=== PATIENT | male | born 1975 | race Caucasian/White ===

== ENCOUNTER 2019-02-10 07:08 | Emergency (ER) | payer BC ==
--- OUTSIDE RECORDS SUMMARY | 2019-02-10 07:09 | XMS REPORT ---
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 Problem Hyperglycemia R73.9 Active Problem Hypertriglyceridemia E78.1 Active Problem Irregular heart beats I49.9 Active Problem Male erectile disorder N52.9 Active Assessment 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 Assessment Acute pain of left knee M25.562 Active Assessment Benign hypertension I10 Active Assessment Tobacco abuse counseling Z71.6 Active Medications Medication Code System Code Instructions Start End Date Status Dosage Date Niaspan [facility] [id number] 500 MG Orally March 30, Sep 26, Active 1 tablet at Once a day 2017 2017 bedtime Lisinopril [facility] [id number] 20 MG Oral Once Active 1 tablet a day Cialis [facility] [id number] 20 MG Oral Active (Prior Auth: Rx Ref#:[id number]) Results No Known Results Summary Purpose eClinicalWorks Submission
[2019-02-10] MEDS ORDERED: NA CHLORIDE 0.9% 1,000 ML ONE (07:40)
[2019-02-10] MEDS ORDERED: ONDANSETRON 4 MG/2 ML VIAL ONE ×2 (07:40→11:10)
[2019-02-10 08:06] LABS: Absolute Lymphocytes (CBC) 1.8 K/uL (0.7-4.9); Absolute Monocytes 0.7 K/uL (0.1-1.3); Basophils % 0.1 % (0-1.3); Eosinophils % 0.5 % (0-4.4); Hematocrit 44.5 % (39.6-49.0); Lymphocytes % 14.3 % (15.3-44.8); MPV 8.9 fL (7.6-11.3); Monocytes % 5.5 % (3.3-12.3)
[2019-02-10 08:10] LABS: ALT/SGPT 46 U/L (12-78); AST/SGOT 30 U/L (15-37); Albumin 3.8 g/dL (3.4-5.0); Alkaline Phosphatase 96 U/L (45-117); BUN Blood Urea Nitrogen 11 mg/dL (7-18); Bicarbonate 28 mmol/L (21-32); Bilirubin Direct 0.1 mg/dL (0-0.2); Bilirubin Total 0.5 mg/dL (0.2-1.0); Glucose Level 112 mg/dL (74-106); Lipase 111 U/L (73-393); Potassium 4.6 mmol/L (3.5-5.1); Protein, Total 8.3 g/dL (6.4-8.2); Sodium Level 136 mmol/L (136-145)
--- NOTE | 2019-02-10 09:33 | RAD REPORT ---
EXAM DESCRIPTION: CT - Abdomen Pelvis W Contrast - 02/10/2019 9:10 am CLINICAL HISTORY: Lower abdominal pain, nausea, decreased bowel movement COMPARISON: None. TECHNIQUE: Biphasic, helical CT imaging of the abdomen and pelvis was performed following 100 ml non -ionic IV contrast. Oral contrast was given. All CT scans are performed using dose optimization technique as appropriate and may include automated exposure control or mA/KV adjustment according to patient size. FINDINGS: No suspicious findings in the lung bases. Liver shows mild to moderate diffuse fatty infiltration pattern. No focal liver lesion or capsular no dularity. Spleen and pancreas show no suspicious findings. Gallbladder and biliary tree are also with out suspicious finding. Symmetric renal function is seen with no hydronephrosis or suspicious renal mass. No pyelonephritis o r acute parenchymal process. No bladder abnormalities. No adrenal abnormalities. No gastric dilatation or wall thickening. No small bowel abnormality identified. From cecum through s plenic flexure no acute colon process identifiable. Proximal sigmoid colon shows an approximately 3-4 centimeter length of circumferential wall thickening and significant luminal narrowing. There is mil d dilatation of the descending colon immediately proximal to the sigmoid finding. Distal sigmoid and rectum show no acute findings. There is mild stranding in the fat adjacent to the involved sigmoid co lilliana. There are multiple small sub centimeter lymph nodes present. No free air, free fluid or pneumatosis. No bulky lymphadenopathy. Patient does have a few small sub centimeter periaortic lymph nodes. Patient has a fat only umbilical hernia 4.5 cm AP x 3.5 cm TR. Nec k is 3 cm. No bowel involvement. No congestion or edema of the herniated fat. No suspicious bony findings. IMPRESSION: Approximately 3- 4 centimeter long segment of proximal sigmoid colon showing wall thicke leslie and luminal narrowing. Mild dilatation of the descending colon proximal to the involved sigmoid colon. Adjacent stranding is present with multiple small sub centimeter sized lymph nodes. Sigmoid colon malignancy is favored over colitis/diverticulitis. A few small sub centimeter periaortic lymph nodes are present. Fatty infiltration of the liver. No focal liver lesion identified.
[2019-02-10] MEDS ORDERED: METRONIDAZOLE 500mg IVPB 500 MG/100 ML BAG IV ONE (11:31)
[2019-02-10] MEDS ORDERED: DICYCLOMINE HCL 10 MG CAP ONE (11:31)
[2019-02-10] MEDS ORDERED: CIPROFLOXACIN HCL 500 MG TAB ONE (11:31)
[2019-02-10 11:46] LABS: Urine Blood TRACE (NEG); Urine Glucose NEGATIVE (NEG); Urine Protein NEGATIVE (NEG); Urine pH 5.5 (5.0-7.0)
--- NOTE | 2019-02-10 12:33 | ER ---
Nurse's Notes [facility] Name: Frantz Martinez Jr Age: 43 yrs Sex: Male : 1975 Arrival Date: 02/10/2019 Time: 07:10 Bed 13 Private MD: Joshua Seymour Diagnosis: Malignant neoplasm of sigmoid colon Presentation: 02/10 07:19 Presenting complaint: Patient states: lower abd pain that started last night, reports em nausea, denies fever or diarrhea, has not had a BM in days. Transition of care: patient was not received from another setting of care. Onset of symptoms was February 09, 2019. Risk Assessment: Do you want to hurt yourself or someone else? Patient reports no desire to harm self or others. Initial Sepsis Screen: Does the patient meet any 2 criteria? No. Patient's initial sepsis screen is negative. Does the patient have a suspected source of infection? No. Patient's initial sepsis screen is negative. Care prior to arrival: None. 07:19 Method Of Arrival: Ambulatory em 07:33 Acuity: CONNIE 3 iw Triage Assessment: 07:26 General: Appears in no apparent distress. uncomfortable, Behavior is calm, cooperative. em Pain: Complains of pain in right lower quadrant and left lower quadrant. GI: Abdomen is obese, Bowel sounds present X 4 quads. Reports constipation, nausea, vomiting. Historical: - Allergies: 07:26 No Known Allergies; em - Home Meds: 07:26 lisinopril 20 mg Oral tab [Active]; em - PMHx: 07:26 Hypertension; em - PSHx: 07:26 None; em - Immunization history:: Adult Immunizations up to date. - Social history:: Smoking status: Patient/guardian denies using tobacco. - Ebola Screening: : Patient negative for fever greater than or equal to 101.5 degrees Fahrenheit, and additional compatible Ebola Virus Disease symptoms Patient denies exposure to infectious person Patient denies travel to an Ebola-affected area in the 21 days before illness onset No symptoms or risks identified at this time. Screenin:30 Abuse screen: Denies threats or abuse. Nutritional screening: No deficits noted. em Tuberculosis screening: No symptoms or risk factors identified. Fall Risk None identified. Assessment: 07:30 General: Appears in no apparent distress. uncomfortable, Behavior is calm, cooperative, em Denies fever. Pain: Complains of pain in left lower quadrant and right lower quadrant Pain currently is 0 out of 10 on a pain scale. at worst was 7 out of 10 on a pain scale. Quality of pain is described as crampy, Pain began 1 day ago. Neuro: Level of Consciousness is awake, alert, obeys commands, Oriented to person, place, time, situation. Cardiovascular: Denies chest pain, Capillary refill < 3 seconds Patient's skin is warm and dry. Respiratory: Airway is patent Respiratory effort is even, unlabored, Respiratory pattern is regular, symmetrical. GI: Abdomen is obese, Bowel sounds present X 4 quads. Abd is soft X 4 quads Abdomen is tender to palpation in right lower quadrant and left lower quadrant Reports constipation, nausea, vomiting, Patient currently denies diarrhea. : Denies burning with urination. EENT: No signs and/or symptoms were reported regarding the EENT system. Derm: Skin is intact, is healthy with good turgor, Skin is pink, warm \T\ dry. Musculoskeletal: Range of motion: intact in all extremities. 07:35 Reassessment: finished drinking PO contrast, CT notified. em 08:30 Reassessment: Patient appears in no apparent distress at this time. Patient and/or em family updated on plan of care and expected duration. Pain level reassessed. Patient is alert, oriented x 3, equal unlabored respirations, skin warm/dry/pink. nausea has subsided, still reports intermittent pain, currently does not want anything for pain, pending CT. 10:00 Reassessment: Patient appears in no apparent distress at this time. Patient and/or em family updated on plan of care and expected duration. Pain level reassessed. Patient is alert, oriented x 3, equal unlabored respirations, skin warm/dry/pink. 11:10 Reassessment: Patient appears in no apparent distress at this time. request something em for nausea, provider notified, new medication orders received. 11:58 Reassessment: Patient appears in no apparent distress at this time. Patient and/or em family updated on plan of care and expected duration. Pain level reassessed. Patient is alert, oriented x 3, equal unlabored respirations, skin warm/dry/pink. Patient states feeling better. Patient states symptoms have improved. 12:43 Reassessment: Patient appears in no apparent distress at this time. Patient and/or em family updated on plan of care and expected duration. Pain level reassessed. Patient is alert, oriented x 3, equal unlabored respirations, skin warm/dry/pink. nausea has improved Patient states feeling better. Patient states symptoms have improved. Vital Signs: 07:27 BP 144 / 90; Pulse 87; Resp 18; Temp 98.5(O); Pulse Ox 100% on R/A; Weight 124.74 kg; em Height 5 ft. 9 in. (175.26 cm); Pain 7/10; 08:30 BP 150 / 88; Pulse 85; Resp 18; Pulse Ox 96% on R/A; em 09:00 BP 150 / 88; Pulse 78; Resp 18; Pulse Ox 98% ; sv 10:30 BP 131 / 79; Pulse 80; Resp 18; Pulse Ox 97% ; sv 11:30 BP 141 / 93; Pulse 77; Resp 18; Pulse Ox 99% on R/A; Pain 3/10; em 12:45 BP 145 / 89; Pulse 79; Resp 18; Pulse Ox 99% on R/A; Pain 4/10; em 07:27 Body Mass Index 40.61 (124.74 kg, 175.26 cm) em ED Course: 07:10 Patient arrived in ED. rg4 07:10 Joshua Seymour MD is Private Physician. rg4 07:13 Brayan Cuba LVN is Primary Nurse. em 07:14 Cristian Castaneda NP is PHCP. pm1 07:27 Arm band placed on. em 07:28 Luan Rivera MD is Attending Physician. pm1 07:30 Patient has correct armband on for positive identification. Placed in gown. Bed in low em position. Call light in reach. Adult w/ patient. Pulse ox on. NIBP on. 07:30 Initial lab(s) drawn, by me, sent to lab. Inserted saline lock: 20 gauge in right em antecubital area, using aseptic technique. Blood collected. 07:33 Triage completed. iw 09:[address] via wheelchair. nj 09:10 CT completed. Patient tolerated procedure well. Patient moved back from CT. nj 09:10 CT Abd/Pelvis - W/Contrast: PO and Iv contrast In Process Unspecified. EDMS 12:30 Joshua Seymour MD is Referral Physician. pm1 12:30 El Mondragon MD is Referral Physician. pm1 12:46 No provider procedures requiring assistance completed. IV discontinued, intact, em bleeding controlled, No redness/swelling at site. Pressure dressing applied. Administered Medications: 07:35 Drug: NS 0.9% 1000 ml Route: IV; Rate: 1000 ml; Site: right antecubital; em 09:00 Follow up: IV Status: Completed infusion; IV Intake: 1000ml em 07:37 Drug: Zofran 4 mg Route: IVP; Site: right antecubital; iw 08:00 Follow up: Response: No adverse reaction; Nausea is decreased em 11:18 Drug: Zofran 4 mg Route: IVP; Site: right antecubital; em 12:46 Follow up: Response: No adverse reaction; Nausea is decreased em 11:28 Drug: Bentyl 20 mg Route: PO; em 12:46 Follow up: Response: No adverse reaction; Pain is decreased em 11:28 Drug: Flagyl 500 mg Volume: 100 ml; Route: IVPB; Rate: 200 ml/hr; Infused Over: 30 em mins; Site: right antecubital; 12:00 Follow up: Response: No adverse reaction; IV Status: Completed infusion; IV Intake: em 100ml 11:28 Drug: Cipro 500 mg Route: PO; em 12:00 Follow up: Response: No adverse reaction em Intake: 09:00 IV: 1000ml; Total: 1000ml. em 12:00 IV: 100ml; Total: 1100ml. em Outcome: 12:33 Discharge ordered by . pm1 12:47 Discharged to home ambulatory, with family. em 12:47 Condition: good 12:47 Discharge instructions given to patient, family, Instructed on discharge instructions, follow up and referral plans. no drinking with medication, medication usage, Demonstrated understanding of instructions, follow-up care, medications, wound care, Prescriptions given X 5 12:48 Patient left the ED. em Signatures: Dispatcher [employer] Bharati Tovar RN Brayan Alcantara, OIL SPREADER OPERATOR OIL SPREADER OPERATOR em Sherice Henriquez RN RN iw Cristian Castaneda, SLIP MIXER SLIP MIXER pm1 Rowena Diaz rg4 Sarwat No
--- NOTE | 2019-02-10 12:33 | EDPHYS ---
Physician Documentation [facility] Name: Frantz Martinez Jr Age: 43 yrs Sex: Male : 1975 Arrival Date: 02/10/2019 Time: 07:10 Bed 13 Private MD: Joshua Seymour ED Physician Luan Rivera HPI: 02/10 08:17 This 43 yrs old Male presents to ER via Ambulatory with complaints of pm1 Abdominal Pain. 08:17 The patient presents with abdominal pain in the lower abdomen. Onset: The pm1 symptoms/episode began/occurred yesterday. The symptoms do not radiate. Associated signs and symptoms: Pertinent positives: nausea, Pertinent negatives: chest pain, diarrhea, dysuria, fever, shortness of breath, vomiting. The symptoms are described as crampy. Modifying factors: The symptoms are alleviated by nothing, the symptoms are aggravated by nothing. Severity of pain: in the emergency department the pain is actually worse. The patient has not experienced similar symptoms in the past. The patient has not recently seen a physician. No BM in 2 days, typically BID. Historical: - Allergies: 07:26 No Known Allergies; em - Home Meds: 07:26 lisinopril 20 mg Oral tab [Active]; em - PMHx: 07:26 Hypertension; em - PSHx: 07:26 None; em - Immunization history:: Adult Immunizations up to date. - Social history:: Smoking status: Patient/guardian denies using tobacco. - Ebola Screening: : Patient negative for fever greater than or equal to 101.5 degrees Fahrenheit, and additional compatible Ebola Virus Disease symptoms Patient denies exposure to infectious person Patient denies travel to an Ebola-affected area in the 21 days before illness onset No symptoms or risks identified at this time. ROS: 08:17 Constitutional: Negative for fever, chills, and weight loss, Eyes: Negative for injury, pm1 pain, redness, and discharge, ENT: Negative for injury, pain, and discharge, Neck: Negative for injury, pain, and swelling, Cardiovascular: Negative for chest pain, palpitations, and edema, Respiratory: Negative for shortness of breath, cough, wheezing, and pleuritic chest pain. 08:17 Back: Negative for injury and pain, : Negative for injury, bleeding, discharge, and swelling, MS/Extremity: Negative for injury and deformity, Skin: Negative for injury, rash, and discoloration, Neuro: Negative for headache, weakness, numbness, tingling, and seizure. 08:17 Abdomen/GI: Positive for abdominal pain, nausea, constipation, Negative for vomiting, diarrhea. Exam: 08:17 Constitutional: This is a well developed, well nourished patient who is awake, alert, pm1 and in no acute distress. Head/Face: Normocephalic, atraumatic. Chest/axilla: Normal chest wall appearance and motion. Nontender with no deformity. No lesions are appreciated. Cardiovascular: Regular rate and rhythm with a normal S1 and S2. No gallops, murmurs, or rubs. Normal PMI, no JVD. No pulse deficits. Respiratory: Lungs have equal breath sounds bilaterally, clear to auscultation and percussion. No rales, rhonchi or wheezes noted. No increased work of breathing, no retractions or nasal flaring. 08:17 Back: No spinal tenderness. No costovertebral tenderness. Full range of motion. Skin: Warm, dry with normal turgor. Normal color with no rashes, no lesions, and no evidence of cellulitis. MS/ Extremity: Pulses equal, no cyanosis. Neurovascular intact. Full, normal range of motion. 08:17 Abdomen/GI: Inspection: obese Bowel sounds: normal, Palpation: soft, mild abdominal tenderness, in the suprapubic area, mass, is not appreciated, rebound tenderness, is not appreciated. 08:17 Neuro: Orientation: is normal, Motor: is normal. Vital Signs: 07:27 BP 144 / 90; Pulse 87; Resp 18; Temp 98.5(O); Pulse Ox 100% on R/A; Weight 124.74 kg; em Height 5 ft. 9 in. (175.26 cm); Pain 7/10; 08:30 BP 150 / 88; Pulse 85; Resp 18; Pulse Ox 96% on R/A; em 09:00 BP 150 / 88; Pulse 78; Resp 18; Pulse Ox 98% ; sv 10:30 BP 131 / 79; Pulse 80; Resp 18; Pulse Ox 97% ; sv 11:30 BP 141 / 93; Pulse 77; Resp 18; Pulse Ox 99% on R/A; Pain 3/10; em 12:45 BP 145 / 89; Pulse 79; Resp 18; Pulse Ox 99% on R/A; Pain 4/10; em 07:27 Body Mass Index 40.61 (124.74 kg, 175.26 cm) em MDM: 07:15 Patient medically screened. pm1 08:18 Data reviewed: vital signs. Data interpreted: Pulse oximetry: on room air is 100 %. pm1 Interpretation: normal. 12:10 Physician consultation: Joshua Seymour MD was called at 12:05, was contacted at 12:05, pm1 regarding admission, patient's condition, Discharge patient to follow up with him next week with Maddison and ophelia. 12:12 Counseling: I had a detailed discussion with the patient and/or guardian regarding: the pm1 historical points, exam findings, and any diagnostic results supporting the discharge/admit diagnosis, lab results, radiology results, the need for outpatient follow up, to return to the emergency department if symptoms worsen or persist or if there are any questions or concerns that arise at home. 12:15 ED course: Patient has setup an appointment with Dr. Mondragon on Wednesday. pm1 02/10 07:19 Order name: Basic Metabolic Panel; Complete Time: 08:16 pm1 02/10 07:19 Order name: CBC with Diff; Complete Time: 08:16 pm1 02/10 07:19 Order name: Creatinine for Radiology; Complete Time: 08:16 pm1 02/10 07:19 Order name: Hepatic Function; Complete Time: 08:16 pm1 02/10 07:19 Order name: Lipase; Complete Time: 08:16 pm1 02/10 09:41 Order name: Urine Dipstick--Ancillary (enter results); Complete Time: 11:51 eb 02/10 07:19 Order name: IV Saline Lock; Complete Time: 07:43 pm1 02/10 07:19 Order name: CT Abd/Pelvis - W/Contrast: PO and Iv contrast; Complete Time: 09:39 pm1 02/10 07:19 Order name: Labs collected and sent; Complete Time: 07:43 pm1 Administered Medications: 07:35 Drug: NS 0.9% 1000 ml Route: IV; Rate: 1000 ml; Site: right antecubital; em 09:00 Follow up: IV Status: Completed infusion; IV Intake: 1000ml em 07:37 Drug: Zofran 4 mg Route: IVP; Site: right antecubital; iw 08:00 Follow up: Response: No adverse reaction; Nausea is decreased em 11:18 Drug: Zofran 4 mg Route: IVP; Site: right antecubital; em 12:46 Follow up: Response: No adverse reaction; Nausea is decreased em 11:28 Drug: Bentyl 20 mg Route: PO; em 12:46 Follow up: Response: No adverse reaction; Pain is decreased em 11:28 Drug: Flagyl 500 mg Volume: 100 ml; Route: IVPB; Rate: 200 ml/hr; Infused Over: 30 em mins; Site: right antecubital; 12:00 Follow up: Response: No adverse reaction; IV Status: Completed infusion; IV Intake: em 100ml 11:28 Drug: Cipro 500 mg Route: PO; em 12:00 Follow up: Response: No adverse reaction em Disposition: 13:47 Co-signature as Attending Physician, Laun Rivera MD I agree with the assessment and andrei plan of care. Disposition: 02/10/19 12:33 Discharged to Home. Impression: Malignant neoplasm of sigmoid colon. - Condition is Stable. - Discharge Instructions: Colon Mass, Adult. - Prescriptions for Bentyl 20 mg Oral Tablet - take 1 tablet by ORAL route every 6 hours As needed; 20 tablet. Flagyl 500 mg Oral Tablet - take 1 tablet by ORAL route every 8 hours for 10 days; 30 tablet. Zofran 4 mg Oral Tablet - take 1 tablet by ORAL route every 12 hours As needed; 20 tablet. Cipro 500 mg Oral Tablet - take 1 tablet by ORAL route every 12 hours for 10 days; 20 tablet. Tylenol- Codeine #3 300-30 mg Oral Tablet - take 2 tablets by ORAL route every 6 hours As needed; 20 tablet. - Medication Reconciliation Form, Thank You Letter, Antibiotic Education, Prescription Opioid Use form. - Follow up: Joshua Seymour MD; When: 2 - 3 days; Reason: Recheck today's complaints, Continuance of care, Re-evaluation by your physician. Follow up: El Mondragon MD; When: 2 - 3 days; Reason: Recheck today's complaints, Continuance of care, Re-evaluation by your physician. - Problem is new. - Symptoms have improved. Signatures: Dispatcher [employer] Luan Davis MD MD andrei Cuba, Brayan, DRAIN TILE PRESS OPERATOR DRAIN TILE PRESS OPERATOR em Sherice Henriquez, NOE RN Cristian Kline NP NUCLEAR POWERPLANT MECHANIC pm1 Corrections: (The following items were deleted from the chart) 12:48 12:33 02/10/2019 12:33 Discharged to Home. Impression: Malignant neoplasm of sigmoid em colon. Condition is Stable. Forms are Medication Reconciliation Form, Thank You Letter, Antibiotic Education, Prescription Opioid Use. Follow up: Joshua Seymour; When: 2 - 3 days; Reason: Recheck today's complaints, Continuance of care, Re-evaluation by your physician. Follow up: El Mondragon; When: 2 - 3 days; Reason: Recheck today's complaints, Continuance of care, Re-evaluation by your physician. Problem is new. Symptoms have improved. pm1
== END 2019-02-10 12:48 | disposition home or self-care (01) ==
LOC: ER 07:08
DX: C18.7 Malignant neoplasm of sigmoid colon (principal); I10 Essential (primary) hypertension
CPT/HCPCS: 36415; 74177; 80048; 80076; 81003; 83690; 85025; 96361; 96365; 96375; 99284; J2405; J7030; Q9967

== ENCOUNTER 2019-02-14 17:42 | Inpatient (IN) | payer BC ==
--- OUTSIDE RECORDS SUMMARY | 2019-02-14 17:44 | XMS REPORT ---
[...] Start End Date Status Dosage Date Niaspan [facility] [id number] 500 MG Orally March 30, Sep 26, Active 1 tablet at Once a day 2017 2017 bedtime Lisinopril [facility] 76955162047 20 MG Oral Once Active 1 tablet a day Cialis [facility] 92367565648 20 MG Oral Active (Prior Auth: Rx Ref#:[id number]) Results No Known Results Summary Purpose eClinicalWorks Submission
[2019-02-14] MEDS ORDERED: PROMETHAZINE 25 MG/ML VIAL IV PRN (20:00)
[2019-02-14] MEDS ORDERED: MORPHINE 4 MG/ML SYR IV ONE (20:03)
[2019-02-14] MEDS: D5 0.45 NS 1,000 ML IV SCH (20:48)
[2019-02-14] MEDS ORDERED: INFLUENZA VACCINE (for 3y+) 0.5 ML DOSE IMVAC ONE (21:00)
[2019-02-15] MEDS: D5 0.45 NS 1,000 ML IV SCH ×3 (04:34→20:27)
[2019-02-15] MEDS: PANTOPRAZOLE 40MG TABLET PO SCH (06:11)
[2019-02-15] MEDS: HYDROCODONE/APAP 7.5/325 MG TAB PO PRN ×2 (06:14→20:30)
[2019-02-15 08:01] LABS: Urine Appearance CLOUDY; Urine Blood NEGATIVE (NEG); Urine Color DK YELLOW; Urine Glucose NEGATIVE (NEG); Urine Protein TRACE (NEG); Urine Specific Gravity >=1.030 (1.005-1.030)
[2019-02-15 09:00] LABS: Urine Bilirubin NEGATIVE (NEG); Urine Microscopic Reflex ORDER UMIC
[2019-02-15 09:02] LABS: Urine Bacteria <20 /HPF (NONE SEEN); Urine Culture Reflex Order REFLEXED; Urine Mucus 3+ /HPF (NONE SEEN); Urine RBC <5 /HPF (NONE SEEN)
[2019-02-15 09:08] LABS: Absolute Lymphocytes (CBC) 1.1 K/uL (0.7-4.9); Absolute Monocytes 1.3 K/uL (0.1-1.3); Absolute Neutrophil 11.5 K/uL (1.8-8.0); Basophils % 0.1 % (0-1.3); Eosinophils % 1.1 % (0-4.4); Hematocrit 42.3 % (39.6-49.0); Lymphocytes % 8.1 % (15.3-44.8); Monocytes % 9.4 % (3.3-12.3); RBC Red Blood Cell Count 4.81 M/uL (4.33-5.43)
[2019-02-15 09:25] LABS: Albumin 3.5 g/dL (3.4-5.0); Bilirubin Total 0.6 mg/dL (0.2-1.0); Potassium 3.8 mmol/L (3.5-5.1); Protein, Total 7.5 g/dL (6.4-8.2)
--- NOTE | 2019-02-15 09:26 | P.HP ---
Certification for Inpatient Patient admitted to: Inpatient With expected LOS: >2 Midnights Patient will require the following post-hospital care: None Practitioner: I am a practitioner with admitting privileges, knowledge of patient current condition, hospital course, and medical plan of care. Services: Services provided to patient in accordance with Admission requirements found in Title 42 Section 412.3 of the Code of Federal Regulations Patient History Date of Service: 02/15/19 Primary Care Provider: Dawn Reason for admission: diverticulitis History of Present Illness: Patient has been having abdominal pain for the past 5 days. Went to the ER Wednesday. Showed diverticulitis and a possible mass on CT. However was tolerating PO. Was sent home on cipro. Was seen yesterday by Dr. Decker who scoped him. No mass. however the patient was not eating the past 4 days. Stated no gas or stool movement. Was having increased pain. Was therefore directed admitted. Allergies No Known Allergies Allergy (Verified 02/14/19 18:06) Home Medications: Acetaminophen with Codeine [Tylenol with Codeine #3 Tablet] 300 mg PO QID PRN Lisinopril [Prinivil*] 20 mg PO DAILY 02/14/19 Metronidazole 500 mg PO TID 02/14/19 Smz./Tmp. [Bactrim Ds 800 MG/160 MG*] 800 mg PO BID 02/14/19 - Past Medical/Surgical History Has patient received pneumonia vaccine in the past: No Diabetic: No - Family History Father -: Hypertension Mother -: Hypertension, Diabetes - Social History Smoking Status: Never smoker Alcohol use: No CD- Drugs: No Caffeine use: Yes Place of Residence: Home Review of Systems 10-point ROS is otherwise unremarkable Gastrointestinal: Abdominal Pain, Constipation Physical Examination - Vital Signs Temperature: 98.0 F Blood Pressure: 123/60 Pulse: 78 Respirations: 18 Pulse Ox (%): 92 - Physical Exam General: Alert, In no apparent distress HEENT: Atraumatic, PERRLA, Mucous membr. moist/pink, EOMI, Sclerae nonicteric Neck: Supple, 2+ carotid pulse no bruit, No LAD, Without JVD or thyroid abnormality Respiratory: Clear to auscultation bilaterally, Normal air movement Cardiovascular: Regular rate/rhythm, Normal S1 S2 Gastrointestinal: Normal bowel sounds, No ascites, Distended, Tenderness Musculoskeletal: No tenderness Integumentary: No rashes Neurological: Normal gait, Normal speech, Normal strength at 5/5 x4 extr, Normal tone, Normal affect Lymphatics: No axilla or inguinal lymphadenopathy - Studies Laboratory Data (last 24 hrs) 02/15/19 08:48: WBC 14.1 H, Hgb 14.0, Hct 42.3, Plt Count 295 Assessment and Plan - Problems (Diagnosis) (1) Diverticulitis large intestine Current Visit: Yes Status: Acute Plan: will consult Dr. Langston. Check a flat plate. Will keep him on fluids. May need a ng tube and decompression. Qualifiers: Diverticulitis bleeding: without bleeding Diverticulitis complication: unspecified complication status Qualified Code(s): K57.32 - Diverticulitis of large intestine without perforation or abscess without bleeding (2) HTN (hypertension) Current Visit: Yes Status: Acute Plan: Will hold his bp meds at this time. is normal on lisinopril 20mg. Will continue monitoring his bp and add when necessary. Qualifiers: Hypertension type: essential hypertension Qualified Code(s): I10 - Essential (primary) hypertension Discharge Plan: Home - Advance Directives Does patient have a Living Will: No Does patient have a Durable POA for Healthcare: No - Code Status/Comfort Care Code Status Assessed: Yes Code Status: Full Code Physician Review: Patient Assessed, Agree with Above Assessment and Plan Critical Care: No Time Spent Managing Pts Care (In Minutes): 40
[2019-02-15] MEDS: ENOXAPARIN 40 MG/0.4 ML SQ SCH (09:55)
[2019-02-15] MEDS: Levofloxacin500mg IV 500 MG/100 ML BAG IV SCH (10:24)
--- NOTE | 2019-02-15 10:26 | RAD REPORT ---
EXAM DESCRIPTION: RAD - Abdomen Acute Series - 02/15/2019 10:13 am CLINICAL HISTORY: Abdominal pain FINDINGS: Mild to moderate dilatation of the colon to the level of the sigmoid. Small bowel is also mildly to moderately dilated. These findings probably indicate a colonic obstruction Free air is not seen. The lungs appear clear of acute infiltrate or
[2019-02-15] MEDS: METRONIDAZOLE 500mg IVPB 500 MG/100 ML BAG IV SCH ×3 (12:45→23:38)
--- NOTE | 2019-02-15 14:15 | CON ---
Date of Consultation: 02/15/2019 Brief History Of Present Illness: The patient is a 43-year-old man who presents to the hospital on 6 days ago with abdominal pain. He developed the pain globally over his abdomen associa jm with distention and pain. He had some nausea with no vomiting. He went to the ER on Wednesday, whe re a CT scan was performed and showed a possible mass versus sigmoid diverticulitis. He was given p. o. and sent home on Cipro, Flagyl and he ultimately followed up with Dr. Mondragon who performed a colon oscopy. He was told that there was no mass evident on his colonoscopy, but did have evidence of dive rticulitis; however, he continues to have pain and decreased p.o. intake and no gas or bowel movement over this last 3-4 days since his colonoscopy. He continues to have distention, which is stable as well as abdominal pain. Therefore, he was brought to the hospital with the above-stated complaints. Past Medical History: Significant for hyperlipidemia and hypertension. Past Surgical History: He has only had dental extractions. Allergies: NO KNOWN DRUG ALLERGIES. Medications: At home include Tylenol No. 3, Prinivil, Cipro, Flagyl and niacin. Family History: His father had hypertension. His mother had hypertension and diabetes. Social History: He denies smoking, alcohol, or recreational drug use. Review of Systems: A 10-point review of systems other than HPI, denies. Physical Examination: Vital Signs: At the time of my examination, his BMI is 39.9. His blood pressure 153/60, pulse 78, r espiratory rate 18, temperature 98.0. General: He is awake, alert, and oriented. Psychiatric: He is appropriate and conversive. HEENT: Normocephalic. Sclerae anicteric. Mucous membranes are moist. Oropharynx is clear. Neck: Supple. No JVD. Chest: Normal expansion and excursion. Cardiovascular: Regular rate and rhythm. Pulmonary: Clear to auscultation bilaterally. Abdomen: Soft with global tenderness to palpation. There is mild tenderness globally. There is no focality. He does have an obvious umbilical hernia which is reducible with fat only contained. He h as no peritoneal signs. He has mild distention. His abdomen is generally obese and somewhat tympani c. Extremities: No clubbing, cyanosis, or edema. Skin: Warm and dry. Laboratory Data: Reveals a white blood cell count of 14.1, hemoglobin is 14.0, hematocrit 42.3, plat elet count is 295. Chemistries are currently pending. UA showed trace leukocyte esterase and 3+ muc us. He had no imaging performed recently on this admission and as such there was none to review. Assessment And Plan: This is a 43-year-old male who comes in with signs and symptoms of likely mateusz nued diverticulitis. 1.IV fluid hydration. 2.Antibiotic coverage with Levaquin and Flagyl. 3.I will order abdominal x-ray to check for free air in the diaphragm. This patient recently had a colonoscopy, concern for perforation is present, although his abdominal exam would not corroborate an y gross perforation. 4.Serial abdominal exams. 5.Continue medical management per Dr. Seymour. Thank you for this interesting consult. I will follow along with you. FREDA/ERIC Voice ID: [id number] Report ID: [id number]
[2019-02-15] MEDS ORDERED: ENOXAPARIN 40 MG/0.4 ML SQ SCH (17:00)
[2019-02-16 05:51] LABS: Absolute Lymphocytes (CBC) 1.5 K/uL (0.7-4.9); Absolute Monocytes 1.2 K/uL (0.1-1.3); Absolute Neutrophil 6.7 K/uL (1.8-8.0); Basophils % 0.1 % (0-1.3); Eosinophils % 1.3 % (0-4.4); Hematocrit 41.6 % (39.6-49.0); Lymphocytes % 15.8 % (15.3-44.8); MPV 8.9 fL (7.6-11.3); Monocytes % 12.4 % (3.3-12.3)
[2019-02-16 06:14] LABS: Magnesium 2.5 mg/dL (1.8-2.4); Phosphorus 2.5 mg/dL (2.5-4.9); Potassium 3.9 mmol/L (3.5-5.1)
[2019-02-16] MEDS: D5 0.45 NS 1,000 ML IV SCH (06:15)
[2019-02-16] MEDS: METRONIDAZOLE 500mg IVPB 500 MG/100 ML BAG IV SCH ×4 (06:15→23:04)
[2019-02-16] MEDS: PANTOPRAZOLE 40MG TABLET PO SCH (06:15)
[2019-02-16] MEDS: HYDROCODONE/APAP 7.5/325 MG TAB PO PRN ×2 (08:09→17:32)
[2019-02-16] MEDS: ENOXAPARIN 40 MG/0.4 ML SQ SCH (08:12)
--- NOTE | 2019-02-16 08:32 | P.PN ---
Subjective Date of Service: 02/16/19 Primary Care Provider: Dawn Chief Complaint: diverticulitis Subjective: Improving (Patient had large volumous BM last evening, and feels much better, less pain, less distended, no nausea or emesis. ambulatory in room last evening) Physical Examination - Vital Signs Temperature: 98.4 F Blood Pressure: 163/85 Pulse: 84 Respirations: 20 Pulse Ox (%): 97 - Physical Exam General: Alert, In no apparent distress, Cooperative HEENT: Mucous membr. moist/pink Gastrointestinal: Other (soft, remains distended with global mild TTP, no rebound, no guarding ,no peritoneal signs) - Studies Laboratory Data (last 24 hrs) 02/16/19 06:00: WBC Cancelled, Hgb Cancelled, Hct Cancelled, Plt Count Cancelled 02/16/19 05:31: Sodium 137, Potassium 3.9, BUN 25 H, Creatinine 1.02, Glucose 113 H, Phosphorus 2.5, Magnesium 2.5 H 02/16/19 05:31: WBC 9.5 D, Hgb 13.8, Hct 41.6, Plt Count 279 02/15/19 09:30: Sodium Cancelled, Potassium Cancelled, BUN Cancelled, Creatinine Cancelled, Glucose Cancelled 02/15/19 08:48: Sodium 138, Potassium 3.8, BUN 33 H D, Creatinine 1.40 H, Glucose 123 H, Total Bilirubin 0.6, AST 68 H, ALT 117 H, Alkaline Phosphatase 91 02/15/19 08:48: WBC 14.1 H, Hgb 14.0, Hct 42.3, Plt Count 295 Assessment And Plan - Current Problems (Diagnosis) (1) Diverticulitis large intestine Current Visit: Yes Status: Acute Plan: continue IV hydration continue IV levaquin and flagyl serial exams start sips of clears today continue lovenox until more ambulatory Qualifiers: Diverticulitis bleeding: without bleeding Diverticulitis complication: unspecified complication status Qualified Code(s): K57.32 - Diverticulitis of large intestine without perforation or abscess without bleeding Physician Review: Patient Assessed, Agree with Above Assessment and Plan
--- NOTE | 2019-02-16 09:43 | P.PN ---
Subjective Date of Service: 02/16/19 Primary Care Provider: Dawn Chief Complaint: diverticulitis Subjective: Improving (Patient has had a bowel movement this morning. Not melena. No pain during BM. She is) Review of Systems 10-point ROS is otherwise unremarkable Gastrointestinal: Abdominal Pain (improving), Distention Physical Examination - Vital Signs Temperature: 98.4 F Blood Pressure: 163/85 Pulse: 84 Respirations: 20 Pulse Ox (%): 97 - Physical Exam General: Alert, In no apparent distress HEENT: Atraumatic, PERRLA, EOMI Neck: Supple, JVD not distended Respiratory: Clear to auscultation bilaterally, Normal air movement Cardiovascular: Regular rate/rhythm, Normal S1 S2 Gastrointestinal: Normal bowel sounds, No tenderness Musculoskeletal: No tenderness Integumentary: No rashes Neurological: Normal speech, Normal tone, Normal affect Lymphatics: No axilla or inguinal lymphadenopathy - Studies Laboratory Data (last 24 hrs) 02/16/19 06:00: WBC Cancelled, Hgb Cancelled, Hct Cancelled, Plt Count Cancelled 02/16/19 05:31: Sodium 137, Potassium 3.9, BUN 25 H, Creatinine 1.02, Glucose 113 H, Phosphorus 2.5, Magnesium 2.5 H 02/16/19 05:31: WBC 9.5 D, Hgb 13.8, Hct 41.6, Plt Count 279 02/15/19 09:30: Sodium Cancelled, Potassium Cancelled, BUN Cancelled, Creatinine Cancelled, Glucose Cancelled 02/15/19 08:48: Sodium 138, Potassium 3.8, BUN 33 H D, Creatinine 1.40 H, Glucose 123 H, Total Bilirubin 0.6, AST 68 H, ALT 117 H, Alkaline Phosphatase 91 Assessment & Plan - Problems (Diagnosis) (1) Diverticulitis large intestine Current Visit: Yes Status: Acute Plan: Patient is doing well today. Will start him on clear liquids. may consider advancing him tomorrow. May be able discharge tomorrow. I will be out of town. The hospitalist will covering Qualifiers: Diverticulitis bleeding: without bleeding Diverticulitis complication: unspecified complication status Qualified Code(s): K57.32 - Diverticulitis of large intestine without perforation or abscess without bleeding (2) HTN (hypertension) Current Visit: Yes Status: Acute Plan: Will hold his bp meds at this time. is normal on lisinopril 20mg. Will continue monitoring his bp and add when necessary. Qualifiers: Hypertension type: essential hypertension Qualified Code(s): I10 - Essential (primary) hypertension Discharge Plan: Home Plan to discharge in: 24 Hours - Code Status/Comfort Care Code Status Assessed: No Code Status: Full Code Physician Review: Patient Assessed, Agree with Above Assessment and Plan Critical Care: No Time Spent Managing Pts Care (In Minutes): 20
[2019-02-16] MEDS: Levofloxacin500mg IV 500 MG/100 ML BAG IV SCH (10:33)
[2019-02-17] MEDS: METRONIDAZOLE 500mg IVPB 500 MG/100 ML BAG IV SCH ×2 (05:21→12:42)
[2019-02-17] MEDS: PANTOPRAZOLE 40MG TABLET PO SCH (05:21)
[2019-02-17 06:29] LABS: Absolute Lymphocytes (CBC) 1.8 K/uL (0.7-4.9); Absolute Monocytes 1.1 K/uL (0.1-1.3); Absolute Neutrophil 7.1 K/uL (1.8-8.0); Basophils % 0.2 % (0-1.3); Hematocrit 40.2 % (39.6-49.0); MPV 9.1 fL (7.6-11.3); Monocytes % 10.9 % (3.3-12.3); RBC Red Blood Cell Count 4.52 M/uL (4.33-5.43)
[2019-02-17 06:51] LABS: Magnesium 2.3 mg/dL (1.8-2.4); Phosphorus 2.9 mg/dL (2.5-4.9); Potassium 3.7 mmol/L (3.5-5.1)
[2019-02-17] MEDS: ENOXAPARIN 40 MG/0.4 ML SQ SCH (09:00)
--- NOTE | 2019-02-17 09:38 | P.PN ---
Subjective Date of Service: 02/17/19 Primary Care Provider: Dawn Chief Complaint: diverticulitis Subjective: Improving (Patient is pain free, tolerating diet, has more bowel function, but loose, improving) Physical Examination - Vital Signs Temperature: 96.9 F Blood Pressure: 163/78 Pulse: 67 Respirations: 20 Pulse Ox (%): 95 - Physical Exam General: Alert, In no apparent distress, Cooperative Gastrointestinal: Soft and benign, Non-distended, No ascites, No tenderness, No masses, No rebound, No guarding - Studies Laboratory Data (last 24 hrs) 02/17/19 06:02: Sodium 137, Potassium 3.7, BUN 21 H, Creatinine 0.94, Glucose 96 , Phosphorus 2.9, Magnesium 2.3 02/17/19 06:02: WBC 10.1, Hgb 13.7, Hct 40.2, Plt Count 267 02/17/19 06:00: WBC Cancelled, Hgb Cancelled, Hct Cancelled, Plt Count Cancelled Microbiology Data (last 24 hrs): 02/15/19 06:30 Clean Catch Urine [place] Count - Final <10,000 CFU/ML. 02/15/19 06:30 Clean Catch Urine - Final Assessment And Plan - Current Problems (Diagnosis) (1) Diverticulitis large intestine Current Visit: Yes Status: Acute Plan: patient doing well, pain free, return of bowel function, tolerating diet well - ok to DC from surgical standpoint - discussed c.diff with patient, recommend send sample prior to discharge - home with antibiotics per Dr. Hill - follow up with Dr. Seymour , Sweat next week Qualifiers: Diverticulitis bleeding: without bleeding Diverticulitis complication: unspecified complication status Qualified Code(s): K57.32 - Diverticulitis of large intestine without perforation or abscess without bleeding Physician Review: Patient Assessed, Agree with Above Assessment and Plan
[2019-02-17] MEDS: Levofloxacin500mg IV 500 MG/100 ML BAG IV SCH (10:26)
--- NOTE | 2019-02-17 13:08 | P.DS ---
Admission Date: 02/14/19 Discharge Date: 02/17/19 Primary Care Provider: Dawn Disposition: ROUTINE DISCHARGE Discharge Condition: GOOD Reason for Admission: diverticulitis Consultations: Dr Langston - Problems (1) Diverticulitis large intestine Current Visit: Yes Status: Acute Qualifiers: Diverticulitis bleeding: without bleeding Diverticulitis complication: unspecified complication status Qualified Code(s): K57.32 - Diverticulitis of large intestine without perforation or abscess without bleeding (2) HTN (hypertension) Current Visit: Yes Status: Chronic Qualifiers: Hypertension type: essential hypertension Qualified Code(s): I10 - Essential (primary) hypertension Brief History of Present Illness: Patient has been having abdominal pain for the past 5 days. Went to the ER Wednesday. Showed diverticulitis and a possible mass on CT. However was tolerating PO. Was sent home on cipro. Was seen yesterday by Dr. Decker who scoped him. No mass. however the patient was not eating the past 4 days. Stated no gas or stool movement. Was having increased pain. Was therefore directed admitted. Hospital Course: Overall during hospital stay pt remained stable. pt was admitted to the hospital for Diverticulitis failed outpt therapy Pt was kept NPO, started on IV fluids and Levaquin and flagyl. Gen Surgery was consulted. Who agreed with the plan. Pt did well on the treatment and thus was advance to CLD and then FLD and Soft. Pt tolerated Diet well, pain was controlled, N/V resolved and thus was discharged home under stable condition. F.u with Gen Surgery and PCP in 1 to 2 week. DC meds: Cipro and flagyl for 10 days Vital Signs/Physical Exam: Temp Pulse Resp BP Pulse Ox 97.8 F 75 20 143/72 H 99 02/17/19 12:00 02/17/19 12:00 02/17/19 12:00 02/17/19 12:00 02/17/19 12:00 General: Alert, In no apparent distress HEENT: Atraumatic, PERRLA, EOMI Neck: Supple, JVD not distended Respiratory: Clear to auscultation bilaterally, Normal air movement Cardiovascular: Regular rate/rhythm, Normal S1 S2 Gastrointestinal: Normal bowel sounds, No tenderness Musculoskeletal: No tenderness Integumentary: No rashes Neurological: Normal speech, Normal tone, Normal affect Lymphatics: No axilla or inguinal lymphadenopathy Laboratory Data at Discharge: WBC 10.1 K/uL (4.3-10.9) 02/17/19 06:02 Hgb 13.7 g/dL (13.6-17.9) 02/17/19 06:02 Hct 40.2 % (39.6-49.0) 02/17/19 06:02 Plt Count 267 K/uL (152-406) 02/17/19 06:02 Sodium 137 mmol/L (136-145) 02/17/19 06:02 Potassium 3.7 mmol/L (3.5-5.1) 02/17/19 06:02 BUN 21 mg/dL (7-18) H 02/17/19 06:02 Creatinine 0.94 mg/dL (0.55-1.3) 02/17/19 06:02 Glucose 96 mg/dL (74-106) 02/17/19 06:02 Phosphorus 2.9 mg/dL (2.5-4.9) 02/17/19 06:02 Magnesium 2.3 mg/dL (1.8-2.4) 02/17/19 06:02 Total Bilirubin 0.6 mg/dL (0.2-1.0) 02/15/19 08:48 AST 68 U/L (15-37) H 02/15/19 08:48 ALT 117 U/L (12-78) H 02/15/19 08:48 Alkaline Phosphatase 91 U/L (45-117) 02/15/19 08:48 Home Medications: Acetaminophen with Codeine [Tylenol with Codeine #3 Tablet] 300 mg PO QID PRN Lisinopril [Prinivil*] 20 mg PO DAILY 02/14/19 Ciprofloxacin HCl 500 mg PO Q12H #20 tablet 02/17/19 metroNIDAZOLE [Flagyl] 500 mg PO Q8H #30 tablet 02/17/19 New Medications: Ciprofloxacin HCl 500 mg PO Q12H #20 tablet metroNIDAZOLE [Flagyl] 500 mg PO Q8H #30 tablet Diet: Regular Activity: Ad laverne Followup: Joshua Seymour MD [ACTIVE - CAN ADMIT] - 1 Week Chris Langston MD [ACTIVE - CAN ADMIT] - 1 Week
== END 2019-02-17 14:00 | disposition home or self-care (01) | DRG 392 ==
LOC: 2ND 17:42
PROVIDERS: ADMIT Internal Medicine; ATTEND Internal Medicine
DX: K57.32 Diverticulitis of large intestine without perforation or abscess without bleeding (principal); I10 Essential (primary) hypertension; E78.5 Hyperlipidemia, unspecified
CPT/HCPCS: 36415; 74022; 80048; 80053; 81003; 81015; 83605; 83735; 84100; 85025; 87086; 87088; 87493; J1650; J2550

== ENCOUNTER 2019-03-07 16:50 | Inpatient (IN) | payer BC ==
--- OUTSIDE RECORDS SUMMARY | 2019-03-07 16:52 | XMS REPORT ---
[...] Start End Date Status Dosage Date Niaspan [facility] [id number] 500 MG Orally March 30, Sep 26, Active 1 tablet at Once a day 2017 2017 bedtime Lisinopril [facility] [id number] 20 MG Oral Once Active 1 tablet a day Cialis [facility] [id number] 20 MG Oral Active (Prior Auth: Rx Ref#:[id number]) Results No Known Results Summary Purpose eClinical[employer] Submission
[2019-03-07] MEDS ORDERED: NA CHLORIDE 0.9% 1,000 ML ONE ×2 (17:26→17:55)
[2019-03-07] MEDS ORDERED: MORPHINE 4 MG/ML SYR ONE ×2 (17:26→18:46)
[2019-03-07] MEDS ORDERED: METRONIDAZOLE 500mg IVPB 500 MG/100 ML BAG IV ONE (17:26)
[2019-03-07] MEDS ORDERED: ONDANSETRON 4 MG/2 ML VIAL ONE (17:34)
--- NOTE | 2019-03-07 17:39 | RAD REPORT ---
EXAM DESCRIPTION: RAD - Chest Single View - 03/07/2019 5:35 pm CLINICAL HISTORY: ABDOMINAL DISTENTION Chest pain. COMPARISON: <Comparisons> FINDINGS: Portable technique limits examination quality. The lungs are grossly clear. The heart is normal in size. No displaced fractures. IMPRESSION: No acute intrathoracic process suspected.
[2019-03-07 17:45] LABS: Absolute Monocytes 0.6 K/uL (0.1-1.3); Absolute Neutrophil 12.8 K/uL (1.8-8.0); Basophils % 0.1 % (0-1.3); Hematocrit 48.6 % (39.6-49.0); Lymphocytes % 7.1 % (15.3-44.8); MPV 9.2 fL (7.6-11.3); RBC Red Blood Cell Count 5.47 M/uL (4.33-5.43)
[2019-03-07 17:47] LABS: Protime INR 1.06
[2019-03-07] MEDS ORDERED: CIPROFLOXACIN 400mg IV 400 MG/200 ML BAG IV ONE (17:55)
[2019-03-07 17:56] LABS: ALT/SGPT 65 U/L (12-78); AST/SGOT 21 U/L (15-37); Albumin 4.2 g/dL (3.4-5.0); Alkaline Phosphatase 87 U/L (45-117); BUN Blood Urea Nitrogen 16 mg/dL (7-18); Bicarbonate 26 mmol/L (21-32); Bilirubin Direct 0.1 mg/dL (0-0.2); Bilirubin Total 0.6 mg/dL (0.2-1.0); Glucose Level 130 mg/dL (74-106); Lipase 116 U/L (73-393); Magnesium 2.5 mg/dL (1.8-2.4); NT PRO-BNP 85 pg/mL (<125); Potassium 4.9 mmol/L (3.5-5.1); Protein, Total 9.6 g/dL (6.4-8.2); Sodium Level 137 mmol/L (136-145); Troponin (Emerg Dept Use Only) < 0.02 ng/mL (0.0-0.045)
--- NOTE | 2019-03-07 18:14 | EDPHYS ---
Physician Documentation [facility] Name: Frantz Martinez Jr Age: 43 yrs Sex: Male : 1975 Arrival Date: 03/07/2019 Time: 16:53 Bed 27 Private MD: Joshua Seymour ED Physician Luan Rivera HPI: 03/07 17:28 This 43 yrs old Male presents to ER via Ambulatory with complaints of andrei Abdominal Pain. 17:28 The patient presents with abdominal pain abdominal distention. Onset: The andrei symptoms/episode began/occurred 2 day(s) ago. The symptoms do not radiate. Associated signs and symptoms: Pertinent positives: nausea and vomiting. The symptoms are described as crampy. Modifying factors: The symptoms are alleviated by nothing, the symptoms are aggravated by pressure, walking. Severity of pain: At its worst the pain was mild in the emergency department the pain is unchanged. The patient has experienced similar episodes in the past, a few times. Historical: - Allergies: 17:01 No Known Allergies; sv - Home Meds: 20:03 lisinopril 20 mg Oral tab [Active]; mg2 - PMHx: 17:01 Hypertension; Diverticulitis; sv - Immunization history:: Flu vaccine status is unknown. - Social history:: Smoking status: unknown. - Family history:: not pertinent. - Ebola Screening: : No symptoms or risks identified at this time. ROS: 17:28 Constitutional: Negative for fever, chills, and weight loss, Eyes: Negative for injury, andrei pain, redness, and discharge, ENT: Negative for injury, pain, and discharge, Neck: Negative for injury, pain, and swelling, Cardiovascular: Negative for chest pain, palpitations, and edema, Respiratory: Negative for shortness of breath, cough, wheezing, and pleuritic chest pain, Back: Negative for injury and pain, : Negative for injury, bleeding, discharge, and swelling, MS/Extremity: Negative for injury and deformity, Skin: Negative for injury, rash, and discoloration, Neuro: Negative for headache, weakness, numbness, tingling, and seizure, Psych: Negative for depression, anxiety, suicide ideation, homicidal ideation, and hallucinations, Allergy/Immunology: Negative for hives, rash, and allergies, Endocrine: Negative for neck swelling, polydipsia, polyuria, polyphagia, and marked weight changes, Hematologic/Lymphatic: Negative for swollen nodes, abnormal bleeding, and unusual bruising. 17:28 Abdomen/GI: Positive for abdominal pain, nausea and vomiting, abdominal distension, of the right upper quadrant, left upper quadrant, right lower quadrant and left lower quadrant. Exam: 17:28 Constitutional: This is a well developed, well nourished patient who is awake, alert, andrei and in no acute distress. Head/Face: Normocephalic, atraumatic. Eyes: Pupils equal round and reactive to light, extra-ocular motions intact. Lids and lashes normal. Conjunctiva and sclera are non-icteric and not injected. Cornea within normal limits. Periorbital areas with no swelling, redness, or edema. ENT: Nares patent. No nasal discharge, no septal abnormalities noted. Tympanic membranes are normal and external auditory canals are clear. Oropharynx with no redness, swelling, or masses, exudates, or evidence of obstruction, uvula midline. Mucous membranes moist. Neck: Trachea midline, no thyromegaly or masses palpated, and no cervical lymphadenopathy. Supple, full range of motion without nuchal rigidity, or vertebral point tenderness. No Meningismus. Chest/axilla: Normal chest wall appearance and motion. Nontender with no deformity. No lesions are appreciated. Cardiovascular: Regular rate and rhythm with a normal S1 and S2. No gallops, murmurs, or rubs. Normal PMI, no JVD. No pulse deficits. Respiratory: Lungs have equal breath sounds bilaterally, clear to auscultation and percussion. No rales, rhonchi or wheezes noted. No increased work of breathing, no retractions or nasal flaring. Back: No spinal tenderness. No costovertebral tenderness. Full range of motion. Male : Normal genitalia with no discharge or lesions. Skin: Warm, dry with normal turgor. Normal color with no rashes, no lesions, and no evidence of cellulitis. MS/ Extremity: Pulses equal, no cyanosis. Neurovascular intact. Full, normal range of motion. Neuro: Awake and alert, GCS 15, oriented to person, place, time, and situation. Cranial nerves II-XII grossly intact. Motor strength 5/5 in all extremities. Sensory grossly intact. Cerebellar exam normal. Normal gait. Psych: Awake, alert, with orientation to person, place and time. Behavior, mood, and affect are within normal limits. 17:28 Abdomen/GI: Inspection: abdomen appears normal, Bowel sounds: normal, Palpation: mild abdominal tenderness, moderate abdominal tenderness, in the right upper quadrant and right lower quadrant, Liver: no appreciated palpable abnormalities, Hernia: not appreciated. Vital Signs: 17:01 BP 126 / 81; Pulse 122; Resp 22; Temp 97; Pulse Ox 98% ; Weight 117.93 kg; Height 5 ft. sv 9 in. (175.26 cm); Pain 5/10; 18:19 BP 124 / 93; Pulse 89; Resp 18; Pulse Ox 98% on R/A; Pain 4/10; mg2 20:00 BP 134 / 87; Pulse 101; Resp 18; Pulse Ox 100% on R/A; mg2 21:00 BP 123 / 78; Pulse 89; Resp 18; Pulse Ox 100% on R/A; mg2 22:24 BP 124 / 90; Pulse 93; Resp 18; Temp 98.1(O); Pulse Ox 100% on R/A; mg2 17:01 Body Mass Index 38.39 (117.93 kg, 175.26 cm) sv MDM: 17:05 Patient medically screened. andrei 19:42 ED course: Patient does not want Dr. Seymour as his admitting physician. pm1 19:42 Physician consultation: Lino Gonzalez MD was called at 19:40, was contacted at 19:40, pm1 regarding admission, patient's condition, CT report, would like consultation with Dr. with Dr. Langston, Is aware that patient does not want to have Dr. Seymour as his admitting physician. 19:49 Data reviewed: vital signs. Data interpreted: Pulse oximetry: on room air is 98 %. pm1 Interpretation: normal. Counseling: I had a detailed discussion with the patient and/or guardian regarding: the historical points, exam findings, and any diagnostic results supporting the discharge/admit diagnosis, lab results, radiology results, the need for further work-up and treatment in the hospital. 19:49 Physician consultation: Chris Langston MD was called at 19:50, was contacted at 19:50, pm1 regarding consult, patient's condition, and will see patient in ED, shortly. 20:22 Physician consultation: El Mondragon MD was called at 20:22, was contacted at 20:22, pm1 regarding consult, patient's condition, and will see patient tomorrow, Findings on colonoscopy was diverticulitis. 03/07 17:10 Order name: Basic Metabolic Panel; Complete Time: 18:06 [facility] 03/07 17:10 Order name: CBC with Diff; Complete Time: 18:50 [facility] 03/07 17:10 Order name: LFT's; Complete Time: 18:06 [facility] 03/07 17:10 Order name: Magnesium; Complete Time: 18:06 [facility] 03/07 17:10 Order name: NT PRO-BNP; Complete Time: 18:06 [facility] 03/07 17:10 Order name: PT-INR; Complete Time: 18:02 [facility] 03/07 17:10 Order name: Troponin (emerg Dept Use Only); Complete Time: 18:06 [facility] 03/07 17:10 Order name: XRAY Chest (1 view); Complete Time: 18:02 [facility] 03/07 17:10 Order name: Lipase; Complete Time: 18:06 [facility] 03/07 17:10 Order name: CT Abd/Pelvis - W/Contrast; Complete Time: 19:30 [facility] 03/07 17:28 Order name: US Abdomen Limited; Complete Time: 18:27 [facility] 03/07 17:48 Order name: CBC Smear Scan; Complete Time: 18:50 [facility] 03/07 18:33 Order name: Urine Dipstick--Ancillary (enter results); Complete Time: 18:50 03/07 17:10 Order name: EKG; Complete Time: 17:11 [facility] 03/07 17:10 Order name: Cardiac monitoring; Complete Time: 17:33 [facility] 03/07 17:10 Order name: EKG - Nurse/Tech; Complete Time: 17:33 [facility] 03/07 17:10 Order name: IV Saline Lock; Complete Time: 17:33 [facility] 03/07 17:10 Order name: Labs collected and sent; Complete Time: 17:33 [facility] 03/07 17:10 Order name: O2 Per Protocol; Complete Time: 17:33 [facility] 03/07 17:10 Order name: O2 Sat Monitoring; Complete Time: 18:38 [facility] 03/07 17:10 Order name: Urine Dipstick-Ancillary (obtain specimen); Complete Time: 18:37 [facility] 03/07 19:31 Order name: NG Tube; Complete Time: 20:02 pm1 Administered Medications: 17:32 Drug: Flagyl 500 mg Volume: 100 ml; Route: IVPB; Rate: 200 ml/hr; Infused Over: 30 mg2 mins; Site: right antecubital; 20:03 Follow up: Response: No adverse reaction; IV Status: Completed infusion mg2 17:33 Drug: NS 0.9% 1000 ml Route: IV; Rate: 1 bolus; Site: right antecubital; mg2 18:18 Follow up: Response: No adverse reaction; IV Status: Completed infusion mg2 17:33 Drug: morphine 4 mg Route: IVP; Site: right antecubital; mg2 18:18 Follow up: Response: No adverse reaction; Marked relief of symptoms mg2 17:34 Drug: Zofran 4 mg Route: IVP; Site: right antecubital; mg2 20:02 Follow up: Response: No adverse reaction; Marked relief of symptoms mg2 18:37 Drug: Pepcid 20 mg Route: IVP; Site: right antecubital; mg2 20:02 Follow up: Response: No adverse reaction mg2 18:37 Drug: Cipro 400 mg Volume: 200 ml; Route: IVPB; Infused Over: 60 mins; Site: right mg2 antecubital; 20:02 Follow up: Response: No adverse reaction; IV Status: Completed infusion mg2 18:37 Drug: NS 0.9% 1000 ml Route: IV; Rate: 125 ml/hr; Site: right antecubital; mg2 22:47 Follow up: Response: No adverse reaction; IV Status: Infusion continued upon admission mg2 19:00 Drug: morphine 4 mg Route: IVP; Site: right antecubital; mg2 20:00 Follow up: Response: No adverse reaction; Marked relief of symptoms mg2 Disposition: 03/08 06:36 Co-signature as Attending Physician, Luan Rivera MD I agree with the assessment and andrei plan of care. Disposition: 03/07/19 18:13 Hospitalization ordered by Lino Gonzalez for Inpatient Admission. Preliminary diagnosis are Abdominal tenderness, Diverticular disease of intestine, Diverticulitis of large intestine without perforation or abscess without bleeding, Elevated white blood cell count. - Bed requested for Telemetry/MedSurg (Inpatient). - Status is Inpatient Admission. mg2 - Condition is Stable. - Problem is new. - Symptoms have improved. UTI on Admission? No Signatures: Dispatcher [employer] EDBharati Muller, RN RN Sapphire Long RN RN Luan Rivera MD MD cha Marinas, Patrick, CAFE AIDE CAFE AIDE pm1 Manuel Cordova RN RN mg2 Corrections: (The following items were deleted from the chart) 03/07 21:53 18:13 Hospitalization Ordered by Lino Gonzalez MD for Inpatient Admission. Preliminary mw diagnosis is Abdominal tenderness; Diverticular disease of intestine; Diverticulitis of large intestine without perforation or abscess without bleeding; Elevated white blood cell count. Bed requested for Telemetry/MedSurg (Inpatient). Status is Inpatient Admission. Condition is Stable. Problem is new. Symptoms have improved. UTI on Admission? No. [facility] 22:47 21:53 03/07/2019 18:13 Hospitalization Ordered by Lino Gonzalez MD for Inpatient mg2 Admission. Preliminary diagnosis is Abdominal tenderness; Diverticular disease of intestine; Diverticulitis of large intestine without perforation or abscess without bleeding; Elevated white blood cell count. Bed requested for Telemetry/MedSurg (Inpatient). Status is Inpatient Admission. Condition is Stable. Problem is new. Symptoms have improved. UTI on Admission? No. mw
--- NOTE | 2019-03-07 18:14 | ER ---
Nurse's Notes [facility] Name: Frantz Martinez Jr Age: 43 yrs Sex: Male : 1975 Arrival Date: 03/07/2019 Time: 16:53 Bed 27 Private MD: Joshua Seymour Diagnosis: Abdominal tenderness;Diverticular disease of intestine;Diverticulitis of large intestine without perforation or abscess without bleeding;Elevated white blood cell count Presentation: 03/07 17:00 Presenting complaint: Patient states: lower abd pain, n/v/d x1 day started after sv eating. Hx diverticulitis. Transition of care: patient was not received from another setting of care. Onset of symptoms was March 06, 2019. Care prior to arrival: None. 17:00 Method Of Arrival: Ambulatory sv 17:00 Acuity: CONNIE 3 sv 17:36 Risk Assessment: Do you want to hurt yourself or someone else? Patient reports no mg2 desire to harm self or others. Initial Sepsis Screen: Does the patient meet any 2 criteria? No. Patient's initial sepsis screen is negative. Does the patient have a suspected source of infection? No. Patient's initial sepsis screen is negative. Historical: - Allergies: 17:01 No Known Allergies; sv - Home Meds: 20:03 lisinopril 20 mg Oral tab [Active]; mg2 - PMHx: 17:01 Hypertension; Diverticulitis; sv - Immunization history:: Flu vaccine status is unknown. - Social history:: Smoking status: unknown. - Family history:: not pertinent. - Ebola Screening: : No symptoms or risks identified at this time. Screenin:36 Abuse screen: Denies threats or abuse. Denies injuries from another. Nutritional mg2 screening: No deficits noted. Tuberculosis screening: No symptoms or risk factors identified. Fall Risk IV access (20 points). Assessment: 17:35 General: Appears in no apparent distress. comfortable, Behavior is calm, cooperative. mg2 Pain: Complains of pain in right lower quadrant Pain does not radiate. Pain currently is 5 out of 10 on a pain scale. Quality of pain is described as aching, Pain began gradually, 2-3 days ago. Is intermittent. Neuro: Level of Consciousness is awake, alert, obeys commands, Oriented to person, place, time, situation. Cardiovascular: Capillary refill < 3 seconds Patient's skin is warm and dry. Respiratory: Airway is patent Respiratory effort is even, unlabored, Respiratory pattern is regular, symmetrical. GI: Bowel sounds present X 4 quads. Abd is soft and non tender. : No deficits noted. EENT: No signs and/or symptoms were reported regarding the EENT system. Derm: Skin is intact, is healthy with good turgor, Skin is pink, warm \T\ dry. normal. Musculoskeletal: Circulation, motion, and sensation intact. Capillary refill < 3 seconds. 19:18 Reassessment: patient sent to ct scan. mg2 Vital Signs: 17:01 BP 126 / 81; Pulse 122; Resp 22; Temp 97; Pulse Ox 98% ; Weight 117.93 kg; Height 5 ft. sv 9 in. (175.26 cm); Pain 5/10; 18:19 BP 124 / 93; Pulse 89; Resp 18; Pulse Ox 98% on R/A; Pain 4/10; mg2 20:00 BP 134 / 87; Pulse 101; Resp 18; Pulse Ox 100% on R/A; mg2 21:00 BP 123 / 78; Pulse 89; Resp 18; Pulse Ox 100% on R/A; mg2 22:24 BP 124 / 90; Pulse 93; Resp 18; Temp 98.1(O); Pulse Ox 100% on R/A; mg2 17:01 Body Mass Index 38.39 (117.93 kg, 175.26 cm) sv ED Course: 16:53 Patient arrived in ED. mr 16:54 Joshua Seymour MD is Private Physician. mr 17:01 Triage completed. sv 17:02 Arm band placed on. sv 17:05 Luan Rivera MD is Attending Physician. andrei 17:12 Manuel Cordova RN is Primary Nurse. mg2 17:35 XRAY Chest (1 view) In Process Unspecified. EDMS 17:36 No provider procedures requiring assistance completed. Inserted saline lock: 20 gauge mg2 in right antecubital area, using aseptic technique. Blood collected. 17:37 Patient has correct armband on for positive identification. mg2 17:47 US Abdomen Limited In Process Unspecified. EDMS 18:12 Lino Gonzalez MD is Hospitalizing Provider. andrei 18:21 Cristian Castaneda NP is PHCP. pm1 19:[address] via wheelchair. vm2 19:12 CT completed. Patient tolerated procedure well. Patient moved back from CT. vm2 19:15 CT Abd/Pelvis - W/Contrast In Process Unspecified. EDMS 20:04 NGT: inserted 16 Fr. via right nare. verified placement of air over stomach, verified mg2 return of gastric contents, to intermittent suction. Patient tolerated well. 22:30 Patient admitted, IV remains in place. mg2 Administered Medications: 17:32 Drug: Flagyl 500 mg Volume: 100 ml; Route: IVPB; Rate: 200 ml/hr; Infused Over: 30 mg2 mins; Site: right antecubital; 20:03 Follow up: Response: No adverse reaction; IV Status: Completed infusion mg2 17:33 Drug: NS 0.9% 1000 ml Route: IV; Rate: 1 bolus; Site: right antecubital; mg2 18:18 Follow up: Response: No adverse reaction; IV Status: Completed infusion mg2 17:33 Drug: morphine 4 mg Route: IVP; Site: right antecubital; mg2 18:18 Follow up: Response: No adverse reaction; Marked relief of symptoms mg2 17:34 Drug: Zofran 4 mg Route: IVP; Site: right antecubital; mg2 20:02 Follow up: Response: No adverse reaction; Marked relief of symptoms mg2 18:37 Drug: Pepcid 20 mg Route: IVP; Site: right antecubital; mg2 20:02 Follow up: Response: No adverse reaction mg2 18:37 Drug: Cipro 400 mg Volume: 200 ml; Route: IVPB; Infused Over: 60 mins; Site: right mg2 antecubital; 20:02 Follow up: Response: No adverse reaction; IV Status: Completed infusion mg2 18:37 Drug: NS 0.9% 1000 ml Route: IV; Rate: 125 ml/hr; Site: right antecubital; mg2 22:47 Follow up: Response: No adverse reaction; IV Status: Infusion continued upon admission mg2 19:00 Drug: morphine 4 mg Route: IVP; Site: right antecubital; mg2 20:00 Follow up: Response: No adverse reaction; Marked relief of symptoms mg2 Output: 22:30 Gastric: 700ml (NGT); Total: 700ml. mg2 Outcome: 18:13 Decision to Hospitalize by Provider. andrei 22:29 Admitted to [facility] accompanied by tech, via stretcher, room 405, with chart, Report mg2 called to NOE Saavedra 22:29 Condition: stable 22:29 Instructed on the need for admit, Demonstrated understanding of instructions. 22:47 Patient left the ED. mg2 Signatures: Dispatcher [employer] EDBharati Muller, NOE RN Luan Valdez MD MD cha Rivera, Ernestina mr TonyaCristian, MACHINIST FIRST CLASS MACHINIST FIRST CLASS pm1 Jenna Ugarte vm2 Manuel Cordova RN RN mg2 Corrections: (The following items were deleted from the chart) 18:37 18:19 BP 124 / 93; Resp 18bpm; mg2 mg2
--- NOTE | 2019-03-07 18:26 | RAD REPORT ---
EXAM DESCRIPTION: US - Abdomen Exam Limited - 03/07/2019 5:48 pm CLINICAL HISTORY: ABD PAIN COMPARISON: No comparisons FINDINGS: The gallbladder demonstrates no gallstones. No pericholecystic fluid or gallbladder wall t hickening. The common bile duct is normal measuring 3 mm. The liver demonstrates no findings of intrahepatic biliary dilatation. IMPRESSION: Unremarkable examination.
[2019-03-07 18:29] LABS: Blood Morphology Comment NOT SEEN (NOT SEEN); Platelet Estimate ADEQ; Urine White Blood Cell Casts OK
[2019-03-07] MEDS ORDERED: FAMOTIDINE 20 MG/2 ML VIAL IV ONE (18:46)
[2019-03-07 18:47] LABS: Urine Blood NEGATIVE (NEG); Urine Glucose NEGATIVE (NEG); Urine Protein 1+ (NEG); Urine Specific Gravity 1.025 (1.005-1.030); Urine pH 5.5 (5.0-7.0)
--- NOTE | 2019-03-07 19:28 | RAD REPORT ---
EXAM DESCRIPTION: CTAbdomen Pelvis W Contrast - 03/07/2019 7:15 pm CLINICAL HISTORY: Abdominal pain. ABD PAIN COMPARISON: Abdomen Pelvis W Contrast dated 02/10/2019Abdomen Pelvis W Contrast dated 02/10/2019 TECHNIQUE: Biphasic CT imaging of the abdomen and pelvis was performed with 100 ml non-ionic IV cont rast. All CT scans are performed using dose optimization technique as appropriate and may include automated exposure control or mA/KV adjustment according to patient size. FINDINGS: The lung bases are clear. The liver demonstrates diffuse fatty infiltration. The spleen, pancreas, adrenal glands and kidneys a re within normal limits. Moderate fat containing umbilical hernia. There is obstruction involving the large bowel. Secondary dilatation of small intestine also present. Caliber change of the sigmoid colon is noted in the left lower quadrant (image 66/105) with several pericolonic nodes seen and left mild pericolonic inflammatory stranding. Sigmoid diverticulosis is al so present. No free air or abscess. The appendix is normal. No evidence of significant lymphadenopat hy. No suspicious bony findings. IMPRESSION: Sigmoid colon mass/ malignancy is suspected resulting in a large bowel obstruction. Foll owup colonoscopy is recommended.
--- NOTE | 2019-03-07 21:25 | P.HP ---
Certification for Inpatient Patient admitted to: Inpatient With expected LOS: >2 Midnights Practitioner: I am a practitioner with admitting privileges, knowledge of patient current condition, hospital course, and medical plan of care. Services: Services provided to patient in accordance with Admission requirements found in Title 42 Section 412.3 of the Code of Federal Regulations Patient History Date of Service: 03/07/19 Reason for admission: SBO History of Present Illness: Mr Martinez is a 43 years old male with history of HTN, who was admitted to this hospital about 3 weeks ago due to acute diverticulitis. At that time, CT abd/pelvis reported a sigmoid narrowing, possible mass. Dr Mondragon performed a colonoscopy, however, did not go thru the sigmoid colon. However, the patient gradually improved, and was discharged home with oral antibiotics. He was doing well until yesterday when he started with abdominal pain, bloating, nausea and vomiting. He denied fever but has had some chills. Lab work in ED remarkable for leukocytosis, 14.4K, CT abd/pelvis report SBO and again a sigmoid colonic mass. Allergies No Known Allergies Allergy (Verified 02/14/19 18:06) Home Medications: Acetaminophen with Codeine [Tylenol with Codeine #3 Tablet] 300 mg PO QID PRN Lisinopril [Prinivil*] 20 mg PO DAILY 02/14/19 Ciprofloxacin HCl 500 mg PO Q12H #20 tablet 02/17/19 metroNIDAZOLE [Flagyl] 500 mg PO Q8H #30 tablet 02/17/19 - Past Medical/Surgical History Diabetic: No -: diverticulosis/diverticulitis -: HTN Past Surgical History: Reviewed- Non-Contributory - Family History Father -: Hypertension Mother -: Hypertension, Diabetes - Social History Smoking Status: Former smoker Alcohol use: Yes CD- Drugs: No Caffeine use: Yes Place of Residence: Home Review of Systems 10-point ROS is otherwise unremarkable Physical Examination - Physical Exam General: Alert, In no apparent distress HEENT: Atraumatic, PERRLA, Mucous membr. moist/pink, EOMI, Sclerae nonicteric Neck: Supple, 2+ carotid pulse no bruit, No LAD, Without JVD or thyroid abnormality Respiratory: Clear to auscultation bilaterally, Normal air movement Cardiovascular: Regular rate/rhythm, Normal S1 S2 Gastrointestinal: Hypoactive, Distended, Tenderness Musculoskeletal: No tenderness Integumentary: No rashes Neurological: Normal speech, Normal strength at 5/5 x4 extr, Normal tone, Normal affect Lymphatics: No axilla or inguinal lymphadenopathy - Studies Laboratory Data (last 24 hrs) 03/07/19 17:20: PT 12.5, INR 1.06 03/07/19 17:20: WBC 14.4 H, Hgb 16.0, Hct 48.6, Plt Count 271 03/07/19 17:20: Sodium 137, Potassium 4.9, BUN 16, Creatinine 1.13, Glucose 130 H, Magnesium 2.5 H, Total Bilirubin 0.6, AST 21, ALT 65, Alkaline Phosphatase 87 , Lipase 116 Assessment and Plan - Problems (Diagnosis) (1) SBO (small bowel obstruction) Current Visit: Yes Status: Acute (2) Colonic mass Current Visit: Yes Status: Acute (3) Diverticulitis large intestine Current Visit: No Status: Acute Qualifiers: Diverticulitis bleeding: without bleeding Diverticulitis complication: unspecified complication status Qualified Code(s): K57.32 - Diverticulitis of large intestine without perforation or abscess without bleeding (4) HTN (hypertension) Current Visit: No Status: Chronic Qualifiers: Hypertension type: essential hypertension Qualified Code(s): I10 - Essential (primary) hypertension - Plan The patient will be admitted to the hospital due to SBO, differential diagnosis include recurrence of diverticulitis vs colonic mass. The patient was evaluated by Dr Langston, He has recommended to consult GI specialist, start IV fluids, NGT , and empiric antibiotic treatment. - Advance Directives Does patient have a Living Will: No Does patient have a Durable POA for Healthcare: No - Code Status/Comfort Care Code Status Assessed: Yes Code Status: Full Code
[2019-03-07] MEDS: NA CHLORIDE 0.9% 1,000 ML IV SCH (22:53)
[2019-03-07] MEDS ORDERED: ONDANSETRON 4 MG/2 ML VIAL IV PRN (22:53)
[2019-03-07] MEDS: Levofloxacin500mg IV 500 MG/100 ML BAG IV SCH (23:39)
[2019-03-07] MEDS: MORPHINE 2 MG/ML SYR IV PRN (23:54)
[2019-03-08] MEDS: METRONIDAZOLE 500mg IVPB 500 MG/100 ML BAG IV SCH ×4 (01:56→23:54)
[2019-03-08 03:13] VITALS: BMI 38.4
--- NOTE | 2019-03-08 07:34 | EKG ---
Test Date: 2019-03-07 Test Time: 17:23:56 Floral Decorator: HANNAH MEASUREMENT RESULTS: Intervals: Rate: 102 MT: 132 QRSD: 82 QT: 336 QTc: 437 [place]: P: 34 MT: 132 QRS: 58 T: 61 INTERPRETIVE STATEMENTS: Sinus tachycardia with occasional premature ventricular complexes Otherwise normal ECG No previous ECG available for comparison Electronically Signed On 03-08-19 07:33:45 CDT by Hugh Christie
[2019-03-08] MEDS: MORPHINE 2 MG/ML SYR IV PRN (08:22)
[2019-03-08] MEDS: NA CHLORIDE 0.9% 1,000 ML IV SCH (08:53)
[2019-03-08] MEDS ORDERED: D50W 25 GM/50 ML SYRINGE IV PRN (09:53)
[2019-03-08] MEDS ORDERED: KETOROLAC 30 MG/ML INJ IV PRN (09:53)
[2019-03-08] MEDS ORDERED: GLUCAGON 1 MG/VIAL IM PRN (09:53)
--- NOTE | 2019-03-08 09:55 | P.PN ---
Subjective Date of Service: 03/08/19 Chief Complaint: SBO Subjective: Improving (Patient has much less pain, began passing gas, feels less distended.) Physical Examination - Vital Signs Temperature: 98.1 F Blood Pressure: 120/80 Pulse: 78 Respirations: 18 Pulse Ox (%): 95 - Physical Exam General: Alert, In no apparent distress, Cooperative Gastrointestinal: Other (soft, mild distention, but improved, mild TTP on deep palpation to LLQ, no rebound, no guarding, no peritoneal signs.) - Studies Laboratory Data (last 24 hrs) 03/07/19 17:20: PT 12.5, INR 1.06 03/07/19 17:20: WBC 14.4 H, Hgb 16.0, Hct 48.6, Plt Count 271 03/07/19 17:20: Sodium 137, Potassium 4.9, BUN 16, Creatinine 1.13, Glucose 130 H, Magnesium 2.5 H, Total Bilirubin 0.6, AST 21, ALT 65, Alkaline Phosphatase 87 , Lipase 116 Assessment And Plan - Current Problems (Diagnosis) (1) Diverticulitis large intestine Current Visit: No Status: Acute Plan: - continue IV hydration, change to d5 1/2 + kcl, increased to 135cc/hr - continue antibiotic coverage - continue serial exams - await Dr. Decker input - I would prefer non-operative management and to resolve this obstruction, diverticulitis and have patient complete colonoscopy with Dr. Decker prior to surgical intervention if possible. - insulin sliding scale - daily labs with lactate - electrolyte replacement - toradol x 2 days Qualifiers: Diverticulitis bleeding: without bleeding Diverticulitis complication: unspecified complication status Qualified Code(s): K57.32 - Diverticulitis of large intestine without perforation or abscess without bleeding
[2019-03-08] MEDS: D5.45NS W/KCL 20MEQ 20 MEQ/1,000 ML BAG IV SCH ×2 (10:39→17:07)
[2019-03-08] MEDS: INSULIN -REGULAR HUMAN 50 UNIT/0.5 ML ML SQ SCH ×3 (11:30→20:30)
[2019-03-08] MEDS ORDERED: HYDRALAZINE HCL 20 MG/ML VIAL IV PRN (14:28)
--- NOTE | 2019-03-08 14:28 | P.PN ---
Subjective Date of Service: 03/08/19 Primary Care Provider: None Chief Complaint: SBO Subjective: Other (Patient doing fair. Pain better controlled.) Physical Examination - Vital Signs Temperature: 98.2 F Blood Pressure: 160/97 Pulse: 69 Respirations: 18 Pulse Ox (%): 95 - Physical Exam General: Alert, In no apparent distress, Cooperative HEENT: Atraumatic Neck: Supple Respiratory: Clear to auscultation bilaterally, Normal air movement Cardiovascular: Normal pulses, Regular rate/rhythm Gastrointestinal: Hypoactive, Distended (Mild distention ), Tenderness (To the left lower quadrant) Musculoskeletal: No tenderness, No warmth Integumentary: No erythema, No warmth, No cyanosis Neurological: Normal speech, Normal strength at 5/5 x4 extr, Normal tone, Normal affect - Studies Laboratory Data (last 24 hrs) 03/07/19 17:20: PT 12.5, INR 1.06 03/07/19 17:20: WBC 14.4 H, Hgb 16.0, Hct 48.6, Plt Count 271 03/07/19 17:20: Sodium 137, Potassium 4.9, BUN 16, Creatinine 1.13, Glucose 130 H, Magnesium 2.5 H, Total Bilirubin 0.6, AST 21, ALT 65, Alkaline Phosphatase 87 , Lipase 116 Medications List Reviewed: Yes Assessment & Plan Discharge Plan: Home Plan to discharge in: Greater than 2 days Physician Review Additional Text: Impression: Large bowel obstruction likely related to recurrent diverticulitis versus possible colonic mass Hypertension Obesity, BMI 38 Plan: Large bowel obstruction likely related to recurrent diverticulitis versus possible colonic mass: Continue IV antibiotic therapy. NG tube in place. Currently with IV fluids and pain control. Case discussed at length with surgery. Surgery reports that patient shows improvement since last night. Patient has seen GI recently. Colonoscopy was performed as an outpatient but could not be completed. Patient was to see colorectal surgery in [place] but came to the hospital instead. Will continue with pain control. IV fluids adjusted by surgery. If the patient continues to worsen patient may require surgery. Hopefully this can resolve and be further addressed as an outpatient. Continue with DVT prophylaxis. Hypertension: Will provide medication as needed. Obesity, BMI 38: Will address lifestyle modification education. Time Spent Managing Pts Care (In Minutes): 55
--- NOTE | 2019-03-08 15:38 | CON ---
Date of Consultation: 03/07/2019 Brief History Of Present Illness: The patient is a 43-year-old male known to me from previous admiss ion back approximately 1 month ago, who was seen on 02/15/2019 with an episode of diverticulitis on t hat [facility]. The patient has a history of diverticulitis and was seen with Dr. Mondragon who performed a colonoscopy as an outpatient, but found by the patient's report an area of diverticulitis concernin g and as such he had an incomplete colonoscopy at that time after the confirmation of diverticulitis was obtained, however, because the complete colonoscopy was not completed at this time concern remain s for possible malignancy based on CT findings. However, the patient had a return of his symptoms in a similar fashion whereby he developed abdominal pain, distention, nausea, vomiting beginning approx imately 1 day prior to his presentation here at the hospital on this particular day. He did have brook e abdominal pain, bloating, distention and vomiting as described. He denied fever and chills, howeve r. Past Medical History: Significant for hypertension and hyperlipidemia. His past medical history als o includes diverticulosis/diverticulitis as described. Past Surgical History: He has only had dental extractions. Allergies: NO KNOWN DRUG ALLERGIES. Home Medications: Include Tylenol with Codeine, Prinivil, Cipro and Flagyl, but he has not taken the Cipro and Flagyl recently. Family History: Father had hypertension. Mother had hypertension and diabetes. Social History: He denies smoking, alcohol, or recreational drug use. Review of Systems: Ten-point review of systems other than HPI, denies. Physical Examination: Vital Signs: At the time of my examination, his BMI is 38.4. His blood pressure 138/84, pulse is 83 , respiratory rate 18, and temperature 98.4. General: He is awake, alert, and oriented. Psychiatric: He is appropriate and conversive. He does not appear to be in any acute distress at th is time. HEENT: Otherwise normocephalic. Sclerae are anicteric. Mucosa is moist. Oropharynx is clear. Neck: Supple. No JVD. Chest: Normal expansion and excursion. Cardiovascular: Regular rate and rhythm. Pulmonary: Clear to auscultation bilaterally. Abdomen: Soft, mildly distended. Tender in the left lower quadrant. No peritoneal signs at this ti me, but he is globally distended. He has mild tenderness to palpation globally. There is no rebound , no guarding. Extremities: No clubbing, cyanosis, or edema. Skin: Warm and dry. Laboratory Data: Reveals a white blood cell count of 14.4, hemoglobin is 16.0, hematocrit of 48.6, p latelet count is 271, and neutrophils are 88%. His PT 12.5, INR 1.06. Sodium 137, potassium 4.8, ch loride 102, carbon dioxide 26, BUN 16, creatinine 1.1. His glucose is 130, magnesium 2.5, total bili osorio 0.6, direct component 0.1, AST 21, ALT 65, alkaline phosphatase is 87. His proBNP is 85. Trop onin is less than 0.02. His lipase is 116. UA was essentially negative. He had a CT scan performed of the abdomen and pelvis on 03/07 which was officially read as sigmoid colon mass/malignancy suspec jm resulting in large bowel obstruction. Followup colonoscopy is recommended. There is obstruction involving the large bowel, secondary dilatation of small intestine also present, caliber change of t he sigmoid colon is noted in left lower quadrant with several pericolonic nodes seen and left mild pe ricolonic inflammatory stranding, sigmoid diverticulosis also present. No free air or abscess. The appendix is normal. No significant lymphadenopathy. He additionally had an abdominal ultrasound per formed which was officially read as unremarkable examination. Assessment And Plan: 1.This is a 43-year-old male who comes in with what appears to be a likely recurrence of sigmoid div erticulitis or continuation from last episode with incomplete resolution from last episode. 2.However, I have concerns of malignancy and recommend this patient ultimately have colonoscopy if c linically appropriate. a.Continue IV fluid hydration. b.Antibiotic coverage. c.GI consult with Dr. Mondragon. d.Serial abdominal exams. e.N.p.o. status with NG tube in place. f.I have explained the risks, benefits, and alternatives of surgical intervention, including but not limited to bleeding, infection, damage to surrounding tissues, injury to ureters, possible colostomy creation, which may be permanent and need for further operations and procedures. The patient agrees to proceed with nonoperative management at this time and I will follow along with you. Thank you for this interesting consult. FREDA/ERIC Voice ID: [id number] Report ID: [id number]
[2019-03-08] MEDS: Levofloxacin500mg IV 500 MG/100 ML BAG IV SCH (21:36)
[2019-03-08] MEDS: FAMOTIDINE 20 MG/2 ML VIAL IV SCH (21:36)
[2019-03-09] MEDS: D5.45NS W/KCL 20MEQ 20 MEQ/1,000 ML BAG IV SCH ×4 (00:15→19:00)
[2019-03-09 04:21] LABS: Absolute Lymphocytes (CBC) 1.6 K/uL (0.7-4.9); Basophils % 0.3 % (0-1.3); Eosinophils % 0.3 % (0-4.4); Hematocrit 39.2 % (39.6-49.0); Lymphocytes % 16.3 % (15.3-44.8); MPV 9.4 fL (7.6-11.3); Monocytes % 10.2 % (3.3-12.3); RBC Red Blood Cell Count 4.44 M/uL (4.33-5.43)
[2019-03-09 04:35] LABS: BUN Blood Urea Nitrogen 11 mg/dL (7-18); Bicarbonate 28 mmol/L (21-32); Glucose Level 98 mg/dL (74-106); Magnesium 2.1 mg/dL (1.8-2.4); Phosphorus 3.3 mg/dL (2.5-4.9); Potassium 4.1 mmol/L (3.5-5.1); Sodium Level 138 mmol/L (136-145)
[2019-03-09] MEDS: INSULIN -REGULAR HUMAN 50 UNIT/0.5 ML ML SQ SCH ×4 (07:30→20:27)
[2019-03-09] MEDS ORDERED: GLUCAGON 1 MG/VIAL IM PRN (08:29)
[2019-03-09] MEDS ORDERED: D50W 25 GM/50 ML SYRINGE IV PRN (08:29)
[2019-03-09] MEDS: METRONIDAZOLE 500mg IVPB 500 MG/100 ML BAG IV SCH ×2 (08:33→18:26)
--- NOTE | 2019-03-09 09:36 | P.PN ---
Subjective Date of Service: 03/09/19 Primary Care Provider: None Chief Complaint: SBO Subjective: Improving Physical Examination - Vital Signs Temperature: 97.3 F Blood Pressure: 149/99 Pulse: 78 Respirations: 18 Pulse Ox (%): 97 - Physical Exam General: Alert, In no apparent distress, Oriented x3, Cooperative HEENT: Atraumatic Neck: Supple Respiratory: Clear to auscultation bilaterally, Normal air movement Cardiovascular: Normal pulses, Regular rate/rhythm Gastrointestinal: Normal bowel sounds, Soft and benign, Non-distended, No tenderness (Less pain noted), No masses, No rebound, No guarding Musculoskeletal: No tenderness, No warmth Integumentary: No tenderness/swelling, No erythema, No warmth, No cyanosis Neurological: Normal speech, Normal strength at 5/5 x4 extr, Normal tone, Normal affect - Studies Medications List Reviewed: Yes Assessment & Plan Discharge Plan: Home Plan to discharge in: 24 Hours Physician Review Additional Text: Impression: Large bowel obstruction likely related to recurrent diverticulitis versus possible colonic mass Hypertension Obesity, BMI 38 Plan: Large bowel obstruction likely related to recurrent diverticulitis versus possible colonic mass: Case discussed with surgery. Continue IV antibiotic therapy. Patient to have NG tube clamped. If no abdominal bloating or pain this will be discontinued and the patient will start clear liquid diet. At that point diet can be advanced as tolerated. Anticipate discharge in the next 24-48 hr if significantly improved. Encourage ambulation. Will provide incentive spirometer. Continue with DVT prophylaxis. Hypertension: Will review and restart home medication Obesity, BMI 38: Will continue to address lifestyle modification education. Time Spent Managing Pts Care (In Minutes): 55
[2019-03-09] MEDS: FAMOTIDINE 20 MG/2 ML VIAL IV SCH ×2 (10:38→21:38)
[2019-03-09] MEDS: Levofloxacin500mg IV 500 MG/100 ML BAG IV SCH (21:38)
[2019-03-10] MEDS: METRONIDAZOLE 500mg IVPB 500 MG/100 ML BAG IV SCH ×2 (00:47→08:31)
[2019-03-10 04:49] VITALS: BP 142/90; TEMP 98.6
[2019-03-10] MEDS: D5.45NS W/KCL 20MEQ 20 MEQ/1,000 ML BAG IV SCH ×2 (05:26→08:20)
[2019-03-10 06:30] LABS: Absolute Lymphocytes (CBC) 1.4 K/uL (0.7-4.9); Absolute Monocytes 1.2 K/uL (0.1-1.3); Absolute Neutrophil 7.9 K/uL (1.8-8.0); Basophils % 0.6 % (0-1.3); Eosinophils % 0.2 % (0-4.4); Hematocrit 40.4 % (39.6-49.0); Lymphocytes % 13.3 % (15.3-44.8); MPV 9.1 fL (7.6-11.3); Monocytes % 11.6 % (3.3-12.3); RBC Red Blood Cell Count 4.55 M/uL (4.33-5.43)
[2019-03-10 06:43] LABS: BUN Blood Urea Nitrogen 9 mg/dL (7-18); Bicarbonate 28 mmol/L (21-32); Glucose Level 107 mg/dL (74-106); Magnesium 2.2 mg/dL (1.8-2.4); Phosphorus 3.9 mg/dL (2.5-4.9); Potassium 4.2 mmol/L (3.5-5.1); Sodium Level 136 mmol/L (136-145)
[2019-03-10] MEDS: INSULIN -REGULAR HUMAN 50 UNIT/0.5 ML ML SQ SCH ×2 (07:30→11:30)
[2019-03-10] MEDS: FAMOTIDINE 20 MG/2 ML VIAL IV SCH (08:31)
--- NOTE | 2019-03-10 08:31 | P.PN ---
Subjective Date of Service: 03/10/19 Primary Care Provider: None Chief Complaint: SBO Subjective: Improving (no pain, good bowel function, ambulatory, no pain, tolerated diet well) Physical Examination - Vital Signs Temperature: 98.6 F Blood Pressure: 142/90 Pulse: 72 Respirations: 20 Pulse Ox (%): 96 - Physical Exam General: Alert, In no apparent distress, Cooperative HEENT: Mucous membr. moist/pink Gastrointestinal: Soft and benign, Non-distended, No ascites, No tenderness, No masses, No rebound, No guarding - Studies Medications List Reviewed: Yes Assessment And Plan - Current Problems (Diagnosis) (1) Diverticulitis large intestine Current Visit: No Status: Acute Plan: - ok to DC home from surgical standpoint - low residue diet - supplement with boost ensure - 2 weeks of levaquin / flagyl - need complete colonoscopy when flare resolved - follow up to discuss surgery following colonoscopy Qualifiers: Diverticulitis bleeding: without bleeding Diverticulitis complication: unspecified complication status Qualified Code(s): K57.32 - Diverticulitis of large intestine without perforation or abscess without bleeding Physician Review Additional Text: Impression: Large bowel obstruction likely related to recurrent diverticulitis versus possible colonic mass Hypertension Obesity, BMI 38 Plan: Large bowel obstruction likely related to recurrent diverticulitis versus possible colonic mass: Case discussed with surgery. Continue IV antibiotic therapy. Patient to have NG tube clamped. If no abdominal bloating or pain this will be discontinued and the patient will start clear liquid diet. At that point diet can be advanced as tolerated. Anticipate discharge in the next 24-48 hr if significantly improved. Encourage ambulation. Will provide incentive spirometer. Continue with DVT prophylaxis. Hypertension: Will review and restart home medication Obesity, BMI 38: Will continue to address lifestyle modification education.
--- NOTE | 2019-03-10 08:45 | P.DS ---
Admission Date: 03/07/19 Discharge Date: 03/10/19 Primary Care Provider: None Disposition: ROUTINE DISCHARGE Discharge Condition: GOOD Reason for Admission: SBO Consultations: Surgery-Dr. Langston Procedures: CT scan: FINDINGS: The lung bases are clear. The liver demonstrates diffuse fatty infiltration. The spleen, pancreas, adrenal glands and kidneys are within normal limits. Moderate fat containing umbilical hernia. There is obstruction involving the large bowel. Secondary dilatation of small intestine also present. Caliber change of the sigmoid colon is noted in the left lower quadrant (image 66/105) with several pericolonic nodes seen and left mild pericolonic inflammatory stranding. Sigmoid diverticulosis is also present. No free air or abscess. The appendix is normal. No evidence of significant lymphadenopathy. No suspicious bony findings. IMPRESSION: Sigmoid colon mass/ malignancy is suspected resulting in a large bowel obstruction. Followup colonoscopy is recommended. ABUS: COMPARISON: No comparisons FINDINGS: The gallbladder demonstrates no gallstones. No pericholecystic fluid or gallbladder wall thickening. The common bile duct is normal measuring 3 mm. The liver demonstrates no findings of intrahepatic biliary dilatation. IMPRESSION: Unremarkable examination. Medical problem list: Partial Large bowel obstruction resolved secondary to recurrent diverticulitis versus possible colonic mass Hypertension Obesity, BMI 38 Brief History of Present Illness: 43-year-old male presented to the emergency room with abdominal pain. Patient had been seen 3 weeks prior for acute diverticulitis. Patient had narrowing to the sigmoid region. Patient was eventually discharged and had a colonoscopy by GI as an outpatient. Full colonoscopy could not be performed. He was sent to colorectal surgery in [place] to further address. He was to see surgery next week but came in with abdominal pain. Patient found to have suspected partial large bowel obstruction due to recurrent diverticulitis. Hospital Course: Patient presented with partial large-bowel obstruction secondary to recurrent diverticulitis. Patient recently hospitalized for acute diverticulitis with narrowing to the sigmoid region. Patient was eventually discharged and had a colonoscopy as an outpatient. Colonoscopy could not fully be assessed due to the narrowing. The patient was sent to colorectal surgery. He has an appointment next week. Patient came in with increasing abdominal pain. Patient was admitted and seen by surgery. Patient received IV fluids and antibiotic therapy. Patient improved. Patient able tolerate diet. Patient without any significant abdominal pain at discharge. Patient has had bowel movement. No indication of obstruction at this time. Patient cleared for discharge by Surgery. He will continue with a full liquid diet which can be advanced to a low residue soft diet with continued supplementation-Ensure/Boost until he is seen by Colorectal surgery. Patient has appointment early next week to see colorectal surgery. Patient may continue with Levaquin 500 mg daily and Flagyl 500 mg 3 times a day for the next 10 days. Patient we provided tramadol 50 mg 1 pill 3 times a day as needed for pain. If patient with increased pain, abdominal bloating, and fever; he will need to return to the hospital. At which point patient may require transfer to colorectal surgery. Patient will likely require full colonoscopy evaluation prior to surgical intervention to further address. This will be done by colorectal surgery. Patient with hypertension. Patient will continue with medication-lisinopril 20 mg daily. Recommendation is to maintain blood pressures less 150/80. Further adjustment can be done by his PCP. Lifestyle modification education provided. Vital Signs/Physical Exam: Temp Pulse Resp BP Pulse Ox 98.6 F 72 20 142/90 H 96 03/10/19 08:31 03/10/19 08:31 03/10/19 08:31 03/10/19 08:31 03/10/19 08:31 General: Alert, In no apparent distress, Oriented x3, Cooperative HEENT: Atraumatic Neck: Supple Respiratory: Clear to auscultation bilaterally, Normal air movement Cardiovascular: Normal pulses, Regular rate/rhythm Gastrointestinal: Normal bowel sounds, Soft and benign, Non-distended, No tenderness, No masses, No rebound, No guarding Musculoskeletal: No erythema, No tenderness, No warmth Integumentary: No tenderness/swelling, No erythema, No warmth, No cyanosis Neurological: Normal speech, Normal strength at 5/5 x4 extr, Normal tone, Normal affect Laboratory Data at Discharge: WBC 10.7 K/uL (4.3-10.9) 03/10/19 06:17 Hgb 13.6 g/dL (13.6-17.9) 03/10/19 06:17 Hct 40.4 % (39.6-49.0) 03/10/19 06:17 Plt Count 227 K/uL (152-406) 03/10/19 06:17 PT 12.5 SECONDS (9.5-12.5) 03/07/19 17:20 INR 1.06 03/07/19 17:20 Sodium 136 mmol/L (136-145) 03/10/19 06:17 Potassium 4.2 mmol/L (3.5-5.1) 03/10/19 06:17 BUN 9 mg/dL (7-18) 03/10/19 06:17 Creatinine 0.76 mg/dL (0.55-1.3) 03/10/19 06:17 Glucose 107 mg/dL (74-106) H 03/10/19 06:17 Phosphorus 3.9 mg/dL (2.5-4.9) 03/10/19 06:17 Magnesium 2.2 mg/dL (1.8-2.4) 03/10/19 06:17 Total Bilirubin 0.6 mg/dL (0.2-1.0) 03/07/19 17:20 AST 21 U/L (15-37) 03/07/19 17:20 ALT 65 U/L (12-78) 03/07/19 17:20 Alkaline Phosphatase 87 U/L (45-117) 03/07/19 17:20 Lipase 116 U/L (73-393) 03/07/19 17:20 Home Medications: Lisinopril [Prinivil*] 20 mg PO DAILY 02/14/19 Levofloxacin [Levaquin] 500 mg PO DAILY #10 tablet 03/10/19 Tramadol HCl [Ultram] 50 mg PO TID PRN #15 tablet 03/10/19 metroNIDAZOLE [Flagyl] 500 mg PO Q8H #30 tablet 03/10/19 New Medications: Levofloxacin [Levaquin] 500 mg PO DAILY #10 tablet metroNIDAZOLE [Flagyl] 500 mg PO Q8H #30 tablet Tramadol HCl [Ultram] 50 mg PO TID PRN #15 tablet PRN Reason: Pain Scale 2-4 (Mild) Patient Discharge Instructions: 1. Patient will follow up with his PCP within 1 -2 weeks to follow up this hospitalization. 2. Patient presented with partial large-bowel obstruction secondary to recurrent diverticulitis. Patient recently hospitalized for acute diverticulitis with narrowing to the sigmoid region. Patient was eventually discharged and had a colonoscopy as an outpatient. Colonoscopy could not fully be assessed due to the narrowing. The patient was sent to colorectal surgery. He has an appointment next week. Patient came in with increasing abdominal pain. Patient was admitted and seen by surgery. Patient received IV fluids and antibiotic therapy. Patient improved. Patient able tolerate diet. Patient without any significant abdominal pain at discharge. Patient has had bowel movement. No indication of obstruction at this time. Patient cleared for discharge by Surgery. He will continue with a full liquid diet which can be advanced to a low residue soft diet with continued supplementation-Ensure/Boost until he is seen by Colorectal surgery. Patient has appointment early next week to see colorectal surgery. Patient may continue with Levaquin 500 mg daily and Flagyl 500 mg 3 times a day for the next 10 days. Patient we provided tramadol 50 mg 1 pill 3 times a day as needed for pain. If patient with increased pain, abdominal bloating, and fever; he will need to return to the hospital. At which point patient may require transfer to colorectal surgery. Patient will likely require full colonoscopy evaluation prior to surgical intervention to further address. This will be done by colorectal surgery. 3. Patient with hypertension. Patient will continue with medication-lisinopril 20 mg daily. Recommendation is to maintain blood pressures less 150/80. Further adjustment can be done by his PCP. 4. Lifestyle modification education provided. Diet: Full liquid diet, advanced to low residue soft Activity: Ad laverne Time spent managing pt's care (in minutes): 55
[2019-03-10] MEDS ORDERED: LISINOPRIL 20 MG TAB PO SCH (09:00)
[2019-03-10 09:32] VITALS: O2SAT 94
--- NOTE | 2019-03-12 14:25 | CON ---
Date of Consultation: 03/08/2019 Reason For Consultation: Large bowel obstruction with abdominal pain, distention, nausea, vomiting. History Of Present Illness: This patient is a 43-year-old white male with history of diverticulitis in the past. The patient presents to hospital now with large bowel obstruction, verified by CT scan with possible recurrent diverticulitis. The patient had colonoscopy on February 14, 2019, after CT scan revealed inflammation of the sigmoid colon, stating that neoplasia could not be ruled out and was mo re likely than diverticulitis at that time. Colonoscopy was performed of sigmoid colon, however, pat destiny inflammation with patches of erythema, edema, stenosis, typical for diverticulitis with a few sma ll diverticula scattered throughout sigmoid colon were noted. The patient has some moderate pain in the sigmoid colon, so no further intubation attempted. Withdrawal commenced. The patient had internal medicine hospitalist al hemorrhoids noted on retroflexion. The patient was subsequently admitted to the hospital for IV a ntibiotics and did well and went home from hospital admission at that time. The patient now presents currently in February for what appears to be recurrent diverticulitis with large bowel obstruction, gen eralized abdominal pain predominantly in the lower abdomen, distention, nausea, and vomiting. The pa tiemalathi is doing better currently with NG tube to low intermittent wall suction. CT scan on this admis daren revealed possible sigmoid colon mass, malignancy versus diverticulitis currently with large jacqueline l obstruction, and there is a moderate fat-containing umbilical hernia on CT scan. The ultrasound of abdomen was unremarkable. Past Medical History: Significant for diverticulitis, obesity, hypertension. Home Medications: Include Tylenol, codeine, Tylenol No. 3, Prinivil, Cipro, Flagyl. Allergies: NKDA. Social History: He is . He is a former smoker. Positive for alcohol. Positive for caffeine . Lives at home. Family History: Father with hypertension. Mother with hypertension, diabetes. Review of Systems: Positive for generalized abdominal pain, nausea, vomiting, distention. Denies any diarrhea or consti pation. No passing of gas or stools yesterday. He denies any current fevers, chills, night sweats, heat or cold intolerance. No melena, hematochezia, masses coffee-grounds emesis, hematuria, dysuria, polyuria, polydipsia, chest pain, shortness of breath, seizure, syncope, lower extremity edema, musc le aches, joint aches, backaches, depression, anxiety. Physical Examination: Vital Signs: The patient is afebrile. Vital signs are stable. He is 5 feet 9 inches, 260 pounds, B NH of 38.4 kg/m2.. Temperature 98.1 degrees Fahrenheit, pulse 70, respiratory rate 18, blood pressur e 120/80, O2 saturation 95%. General: Obese male, lying in bed, in no acute distress with NG to low intermittent wall suction. Neck: Supple. No masses. Respirations: Clear to auscultation bilaterally. Cardiac: Regular rate and rhythm. Gastrointestinal: Positive bowel sounds. Soft. Mild distention. Tympany due to percussion. Pain generalized in lower abdomen bilaterally. Extremities: No clubbing, cyanosis, or edema. 2+ pulses. Neuro: X3 grossly nonfocal. 5/5 motor strength and light touch. Laboratory Data: Yesterday, the patient had white count of 14.4, hemoglobin of 16, hematocrit 49, MC V of 89, platelet count 271, polys of 89%, lymphocytes 7%, monocytes 7%. PT of 12.5, INR of 1.1. Ye sterday, the patient has sodium of 137, potassium 4.9, chloride 102, bicarb 26, BUN of 16, creatinine of 1.1, glucose 130, calcium 9.7, magnesium 2.5, bilirubin 0.6, direct bilirubin 0.1, AST 21, ALT of 65, alk phos 87. Troponin I of less than 0.2. B-type natriuretic peptide 85. Total protein 9.6, a lbumin 4.2, lipase 116. UA is 1+ protein, trace ketone. CT scan revealed sigmoid colon diverticulit is versus mass, neoplasia. Ultrasound of abdomen was negative. Chest x-ray was negative. Impression: Large bowel obstruction secondary to diverticulitis. Positive CT scan. Colonoscopy was performed on February 14 with only diverticula and diverticulitis noted. No mass could be seen. The care was just taken not to over insufflate intubation in the sigmoid colon due to the patient's pain at that time. Cannot totally exclude the neoplastic process proximally, though it appears from the patchy erythema, edema, inflammation, diverticula, diverticulitis at the time of colonoscopy on February 14. The patient has increased pain, generalized, but predominantly in the right and left lower qu adrants and periumbilical area. Maximum 10/10, now none. The patient ate some baked beans, pork cho p, green beans for lunch on Wednesday before his pain began. He is much more comfortable now with NG tu be to low intermittent wall suction and doing better. Surgery is following. Recommendation: 1.Continue IV fluids, IV antibiotics. 2.Continue p.r.n. pain medicines and antiemetics. 3.Surgery is following and that is to continue. 4.Keep the patient n.p.o. 5.Due to recurrence of diverticulitis, the patient is to consider surgical evaluation therapy if nee ded to clear proximal colon, I think possible barium enema after acute diverticulitis has resolved an d/or colonoscopy in 4 to 6 weeks if the patient is able to make it that long. JP/ERIC Voice ID: [id number] Report ID: [id number]
== END 2019-03-10 11:43 | disposition home or self-care (01) | DRG 389 ==
LOC: ER 16:50 → ERHOLD 21:19 → 4TH 22:31
PROVIDERS: ADMIT Internal Medicine; ATTEND Internal Medicine
DX: K56.600 Partial intestinal obstruction, unspecified as to cause (principal); K57.32 Diverticulitis of large intestine without perforation or abscess without bleeding; I10 Essential (primary) hypertension; E66.9 Obesity, unspecified; Z68.38 Body mass index [BMI] 38.0-38.9, adult; K42.9 Umbilical hernia without obstruction or gangrene; R19.00 Intra-abdominal and pelvic swelling, mass and lump, unspecified site
CPT/HCPCS: 36415; 71045; 74177; 76705; 80048; 80076; 81003; 82962; 83605; 83690; 83735; 83880; 84100; 84484; 85025; 85610; 93005; 96361; 96365; 96366; 96375; 99285; J0744; J2270; J2405; J7030; Q9967

== ENCOUNTER 2021-05-08 15:39 | Emergency (ER) | payer OTHER, BC ==
--- OUTSIDE RECORDS SUMMARY | 2021-05-08 15:41 | XMS REPORT | Continuity of Care Document ---
:1975 Author Organization [facility] t Address [address] [place] [address] Care Team Providers Name Role Phone Yared Seymour MD Primary Care Physician Therapy, Covid Infusion Attending Clinician Unavailable Doctor Unassigned, Name Attending Clinician Unavailable Lab, Fam Pob I Attending Clinician Unavailable Finn Arriaga MD Attending Clinician Payers Payer Name Policy Type Policy Effective Date Expiration Date Sour ce Number BCBSBCBS CHOICE [id number] 2014 [place] PPO/FEDERAL 00:00:00 [facility] EMPL [id number] 2014-Presen tPPO Problems Condition Condition Condition Status Onset Resolution Last Treating Co mments Source Name Details Category Date Date Treatment Clinician Date Colon Colon Disease Active [place] stricture stricture 4-30 Meth pelon 00:00: st 00 Acute Acute Disease Active [place] diverticul diverticul 4-26 Me thodi itis itis 00:00: st 00 BMI BMI Problem Active [facility] 37.0-37.9, 37.0-37.9, Dianne kes - adult adult [facility] 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 [facility]ne k[facility] Hyperglyce Hyperglyce Problem Active [facility] Hypertrigl Hypertrigl Problem Active [facility] yceridemia yceridemia [facility] Irregular Irregular Problem Active [facility] heart heart [facility] beats beats [facility] Male Male Problem Active [facility] erectile erectile [facility] disorder disorder [facility] Acute pain Acute pain Diagnosis Active [facility] of left of left [facility] - knee knee [facility] ent Clinics Body mass Body mass Problem Active [facility] index index [facility] - (BMI) of (BMI) of Memori a 40.0-44.9 40.0-44.9 l in adult in adult Outkst i ent Clinics Tobacco Tobacco Diagnosis Active [facility] abuse abuse [facility] - counseling counseling Il zeferinoa l [facility] ent Clinics Benign Benign Diagnosis Active [facility] hypertensi hypertensi Dianne kes - on on [facility] ent Clinics Allergies, Adverse Reactions, Alerts This patient has no known allergies or adverse reactions. Social History Social Habit Start Date Stop Date Quantity Comments Source History of Chews Tobacco [place] [facility] tobacco use Tobacco use and 2019-04-27 2019-04-27 Former user [place] [facility] exposure 00:00:00 00:00:00 Alcohol intake 2019-04-27 2019-04-27 Current drinker Jessicat on [facility] 00:00:00 00:00:00 of alcohol (finding) Alcohol Comment 2019-03-16 2019-03-16 social [facility] ethodist 00:00:00 00:00:00 Sex Assigned At [birth year] [facility] ethodist 00:00:00 00:00:00 Smoking Status Start Date Stop Date Source Never smoker [place] [facility] Medications Ordered Filled Start Stop Current Ordering Indication Dosage Frequency Signature Comments Components Source Medication Medication Date Date Medication? Clinician (SIG) Name Name lisinopril Yes 20mg QD Take 20 mg H oubernardo (PRINIVIL,Z 5-02 by mouth Meth pelon ESTRIL) 20 19:41: every st mg tablet 56 morning. traMADol 2019- Yes 50mg Q6H Take 50 mg Shabana ston (ULTRAM) 50 5-02 by mouth Meth pelon mg tablet 19:41: every 6 st 56 (six) hours as needed for moderate pain. tadalafil 2019- Yes 20mg Q24H Take 20 mg [place] (CIALIS) 20 5-02 by mouth Meth pelon mg tablet 19:41: daily as st 56 needed for erectile dysfunctio nMel Duronsprafael 2018- No Joshua [address] [facility] 03-30 Dawn at bedtime [facility] - 00:00: 00:00 Memoria 00 :00 l Outpati ent Clinics Lisinopril Lisinopril Yes Joshua [address] [facility] Cialiayleen Tobarliayleen Yes Joshua (Prior [facility] Auth: Rx [facility] - Ref#:[id number] [facility] [id number]) l Outpati ent Clinics Procedures This patient has no known procedures. Plan of Care Planned Activity Planned Date Details Comments Source Future Scheduled 2021-06-22 INFLUENZA VACCINE [place] [facility] Test 00:00:00 [code = INFLUENZA VACCINE] Future Scheduled 1991 Hepatitis C [place] [facility] Test 00:00:00 screening (procedure) [code = 830986480] Future Scheduled 1985 COVID-19 VACCINE (1) Shabana chang [facility] Test 00:00:00 [code = COVID-19 VACCINE (1)] Encounters Start End Encounter Admission Attending Care Care Encounter Source Date/Time Date/Time Type Type Clinicians Facility Department ID 2021-02-13 2021-02-13 Nurse Therapy, [facility] [id number] 16:01:30 16:31:30 Visit Nena Padilla [id number] Infusion [place] [id number] Surgical [id number] [place] 053 2021-02-13 2021-02-13 Orders Doctor TERESA [id number] 00:00:00 00:00:00 Only Unassigned, ISIDRA [id number] [place] [facility] [id number] 2021-02-09 2021-02-09 Laboratory Lab, [facility] [id number] 17:58:07 18:18:07 Only Fam Pob I Health [id number] Randy [id number] Professio [id number] nal [address] 2018-03-30 2018-03-30 [facility] [id number] 09:00:00 09:00:00 t [facility] Outpati ent Clinics Results This patient has no known results.
[2021-05-08] MEDS ORDERED: NA CHLORIDE 0.9% 1,000 ML ONE (16:15)
[2021-05-08 16:16] LABS: Absolute Lymphocytes (CBC) 1.7 K/uL (0.7-4.9); Basophils % 0.3 % (0-1.3); Hematocrit 39.7 % (39.6-49.0); Lymphocytes % 18.7 % (15.3-44.8); MPV 9.2 fL (7.6-11.3); RBC Red Blood Cell Count 4.51 M/uL (4.33-5.43)
[2021-05-08 16:24] LABS: Protime INR 1.18
[2021-05-08 16:45] LABS: ALT/SGPT 60 U/L (12-78); AST/SGOT 27 U/L (15-37); Albumin 3.7 g/dL (3.4-5.0); Alkaline Phosphatase 92 U/L (45-117); BUN Blood Urea Nitrogen 13 mg/dL (7-18); Bicarbonate 28 mmol/L (21-32); Bilirubin Direct 0.2 mg/dL (0-0.2); Bilirubin Total 0.6 mg/dL (0.2-1.0); Creatine Phosphokinase 179 U/L (39-308); Glucose Level 96 mg/dL (74-106); Magnesium 2.2 mg/dL (1.8-2.4); Potassium 3.5 mmol/L (3.5-5.1); Protein, Total 7.7 g/dL (6.4-8.2); Sodium Level 140 mmol/L (136-145); Troponin (Emerg Dept Use Only) < 0.02 ng/mL (0.0-0.045)
--- NOTE | 2021-05-08 18:37 | EDPHYS ---
Physician Documentation [facility] Name: Frantz Martinez Jr Age: 45 yrs Sex: Male : 1975 Arrival Date: 05/08/2021 Time: 15:44 Bed 14 Private MD: ED Physician Luis Fernando Jones HPI: 05/08 16:00 This 45 yrs old Male presents to ER via EMS with complaints of Heat Exposure. cp 16:00 The patient complains of pain to the top of head and forehead. The patient describes cp the headache as aching. Onset: The symptoms/episode began/occurred today. Associated signs and symptoms: Pertinent negatives: there are no associated signs or symptoms. Severity of symptoms: in the emergency department the pain has resolved, and did so just prior to arrival. Patient reports complaining of headache after going into office at work after being outside working all morning. No vomiting, denies weakness. Patient reports headache resolved while en route with EMS. Historical: - Allergies: 15:45 No Known Allergies; tw2 - Home Meds: 15:45 lisinopril 20 mg Oral tab [Active]; tw2 - PMHx: 15:45 Diverticulitis; Hypertension; tw2 - Immunization history:: Adult Immunizations. - Social history:: Smoking status: . ROS: 16:05 Constitutional: Negative for body aches, chills, fever, poor PO intake. cp 16:05 Eyes: Negative for injury, pain, redness, and discharge. cp 16:05 ENT: Negative for ear pain, sore throat, difficulty swallowing, difficulty handling secretions. 16:05 Neck: Negative for pain with movement, pain at rest, stiffness. 16:05 Cardiovascular: Negative for chest pain, palpitations. 16:05 Respiratory: Negative for cough, shortness of breath, wheezing. 16:05 Abdomen/GI: Negative for abdominal pain, vomiting, diarrhea, constipation. 16:05 Back: Negative for pain at rest, pain with movement. 16:05 Neuro: Positive for headache, Negative for altered mental status, dizziness, seizure activity, syncope, weakness. 16:05 All other systems are negative. Exam: 16:10 Constitutional: The patient appears in no acute distress, alert, awake, cp non-diaphoretic, non-toxic, well developed, well nourished. 16:10 Head/Face: Normocephalic, atraumatic. cp 16:10 Eyes: Pupils: equal, round, and reactive to light and accomodation, Extraocular movements: intact throughout, Sclera: no appreciated abnormality. 16:10 ENT: External ear(s): are unremarkable, Nose: is normal, Mouth: Lips: moist, Oral mucosa: moist, Posterior pharynx: Airway: no evidence of obstruction, patent. 16:10 Neck: ROM/movement: is normal, is supple, without pain, no range of motions limitations. 16:10 Chest/axilla: Inspection: normal, Palpation: is normal, no crepitus, no tenderness. 16:10 Cardiovascular: Rate: normal, Rhythm: regular, Heart sounds: murmur, not appreciated, Edema: is not appreciated, JVD: is not appreciated. 16:10 Respiratory: the patient does not display signs of respiratory distress, Respirations: normal, no use of accessory muscles, no retractions, labored breathing, is not present, Breath sounds: are clear throughout, no decreased breath sounds. 16:10 Abdomen/GI: Inspection: abdomen appears normal, Palpation: abdomen is soft and non-tender, in all quadrants. 16:10 Back: pain, is absent, ROM is normal. 16:10 Skin: no rash present. 16:10 Neuro: Orientation: to person, place \T\ time. Mentation: is normal, Cerebellar function: is grossly normal, Motor: moves all fours, strength is normal, Sensation: is normal. 16:12 ECG was reviewed by the Attending Physician. cp Vital Signs: 15:51 BP 124 / 83; Pulse 91; Resp 18; Temp 98.9(O); Pulse Ox 100% on R/A; Weight 90.72 kg; ld1 Height 5 ft. 11 in. (180.34 cm); Pain 0/10; 16:30 BP 128 / 80; Pulse 78; Resp 18; Pulse Ox 100% on R/A; ld1 17:40 BP 132 / 86; Pulse 76; Resp 18; Pulse Ox 100% on R/A; ld1 18:45 BP 124 / 80; Pulse 72; Resp 18; Pulse Ox 100% on R/A; ld1 15:51 Body Mass Index 27.89 (90.72 kg, 180.34 cm) ld1 MDM: 15:46 Patient medically screened. cp 18:35 Data reviewed: vital signs, nurses notes, lab test result(s), EKG. cp 18:35 Differential diagnosis: dehydration, acute kidney injury, electrolyte abnormality. Test cp interpretation: by ED physician or midlevel provider: ECG. Counseling: I had a detailed discussion with the patient and/or guardian regarding: the historical points, exam findings, and any diagnostic results supporting the discharge/admit diagnosis, lab results, to return to the emergency department if symptoms worsen or persist or if there are any questions or concerns that arise at home. Response to treatment: the patient's symptoms have markedly improved after treatment, patient is well hydrated. and as a result, I will discharge patient. ED course: VSS. Patient reports symptoms resolved and requesting discharge to home. 05/08 15:50 Order name: Basic Metabolic Panel cp 05/08 15:50 Order name: CBC with Diff; Complete Time: 18:04 cp 05/08 15:50 Order name: LFT's; Complete Time: 18:04 cp 05/08 15:50 Order name: Magnesium; Complete Time: 18:04 cp 05/08 15:50 Order name: PT-INR; Complete Time: 18:04 cp 05/08 15:50 Order name: Troponin (emerg Dept Use Only); Complete Time: 18:04 cp 05/08 15:50 Order name: EKG; Complete Time: 15:51 cp 05/08 15:50 Order name: Cardiac monitoring; Complete Time: 15:54 cp 05/08 15:50 Order name: EKG - Nurse/Tech; Complete Time: 16:07 cp 05/08 15:50 Order name: IV Saline Lock; Complete Time: 16:07 cp 05/08 15:50 Order name: CK; Complete Time: 18:04 cp 05/08 15:50 Order name: Basic Metabolic Panel; Complete Time: 18:04 EDMS 05/08 15:50 Order name: Labs collected and sent; Complete Time: 16:07 cp 05/08 15:50 Order name: O2 Per Protocol; Complete Time: 15:54 cp 05/08 15:50 Order name: O2 Sat Monitoring; Complete Time: 15:54 cp 05/08 18:04 Order name: PO challenge; Complete Time: 18:20 cp EC:12 Rate is 76 beats/min. Rhythm is regular. [place] interval is normal. QRS interval is normal. cp QT interval is normal. T waves are Inverted in lead aVR. Interpreted by me. Reviewed by me. Administered Medications: 16:07 Drug: NS 0.9% 1000 ml Route: IV; Rate: 1 bolus; Site: right antecubital; aa5 18:21 Not Given (Patient Refused): NS 0.9% 1000 ml IV at 1 bolus Per protocol; 1000 mL bolus ld1 Disposition: 05/09 07:16 Co-signature as Attending Physician, Luis Fernando Jones MD I agree with the assessment and kdr plan of care. Disposition: 05/08/21 18:36 Discharged to Home. Impression: Heat exhaustion, unspecified. - Condition is Stable. - Discharge Instructions: Dehydration, Adult, Heat Exhaustion Information. - Medication Reconciliation Form, Thank You Letter, Antibiotic Education, Prescription Opioid Use form. - Work release form (05/12/21 08:10). mt - Follow up: Emergency Department; When: As needed; Reason: Worsening of condition. - Problem is new. - Symptoms have improved. Signatures: Dispatcher [employer] EDMS Luis Fernando Jones MD MD [facility] Elba Asif, RN RN aa5 Luan Pizarro PA PA cp Qian Cancino, RN RN tw2 Keyla Piedra RN RN ld1 Deborah No ma Corrections: (The following items were deleted from the chart) 05/08 18:45 18:36 05/08/2021 18:36 Discharged to Home. Impression: Heat exhaustion, unspecified. ld1 Condition is Stable. Forms are Medication Reconciliation Form, Thank You Letter, Antibiotic Education, Prescription Opioid Use. Follow up: Emergency Department; When: As needed; Reason: Worsening of condition. Problem is new. Symptoms have improved. cp
--- NOTE | 2021-05-08 18:37 | ER ---
Nurse's Notes [facility] Name: Frantz Martinez Jr Age: 45 yrs Sex: Male : 1975 Arrival Date: 05/08/2021 Time: 15:44 Bed 14 Private MD: Diagnosis: Heat exhaustion, unspecified Presentation: 05/08 15:51 Chief complaint: EMS states: Toned out for heat exhaustion. Pt states he was working ld1 outside today in the heat and he began having a bad headache. Coronavirus screen: At this time, the client does not indicate any symptoms associated with coronavirus-19. Ebola Screen: No symptoms or risks identified at this time. Initial Sepsis Screen: Does the patient meet any 2 criteria? No. Patient's initial sepsis screen is negative. Does the patient have a suspected source of infection? No. Patient's initial sepsis screen is negative. Risk Assessment: Do you want to hurt yourself or someone else? Patient reports no desire to harm self or others. Onset of symptoms was May 08, 2021 at 15:53. 15:51 Method Of Arrival: EMS: [facility] ld1 15:51 Acuity: CONNIE 3 ld1 Triage Assessment: 15:51 General: Appears in no apparent distress. comfortable, Behavior is calm, cooperative, ld1 appropriate for age. Pain: Denies pain. EENT: No signs and/or symptoms were reported regarding the EENT system. Neuro: Level of Consciousness is awake, alert, obeys commands, Oriented to person, place, time, situation, Appropriate for age. Cardiovascular: Capillary refill < 3 seconds Patient's skin is warm and dry. Rhythm is regular. Respiratory: Airway is patent Respiratory effort is even, unlabored, Respiratory pattern is regular, symmetrical. GI: Abdomen is round non-distended. : No signs and/or symptoms were reported regarding the genitourinary system. Derm: No signs and/or symptoms reported regarding the dermatologic system. Musculoskeletal: No signs and/or symptoms reported regarding the musculoskeletal system. Historical: - Allergies: 15:45 No Known Allergies; tw2 - Home Meds: 15:45 lisinopril 20 mg Oral tab [Active]; tw2 - PMHx: 15:45 Diverticulitis; Hypertension; tw2 - Immunization history:: Adult Immunizations. - Social history:: Smoking status: . Screenin:45 Abuse screen: Denies threats or abuse. Nutritional screening: No deficits noted. tw2 Tuberculosis screening: No symptoms or risk factors identified. Fall Risk None identified. Assessment: 15:54 Reassessment: See triage assessment. ld1 16:45 Reassessment: Patient appears in no apparent distress at this time. No changes from ld1 previously documented assessment. Patient and/or family updated on plan of care and expected duration. Pain level reassessed. 17:40 Reassessment: Patient appears in no apparent distress at this time. Patient is alert, ld1 oriented x 3, equal unlabored respirations, skin warm/dry/pink. Talking with coworker at bedside. Denies concerns at this time. 18:43 Reassessment: Patient appears in no apparent distress at this time. Patient denies pain ld1 at this time. Patient states feeling better. Vital Signs: 15:51 BP 124 / 83; Pulse 91; Resp 18; Temp 98.9(O); Pulse Ox 100% on R/A; Weight 90.72 kg; ld1 Height 5 ft. 11 in. (180.34 cm); Pain 0/10; 16:30 BP 128 / 80; Pulse 78; Resp 18; Pulse Ox 100% on R/A; ld1 17:40 BP 132 / 86; Pulse 76; Resp 18; Pulse Ox 100% on R/A; ld1 18:45 BP 124 / 80; Pulse 72; Resp 18; Pulse Ox 100% on R/A; ld1 15:51 Body Mass Index 27.89 (90.72 kg, 180.34 cm) ld1 ED Course: 15:44 Patient arrived in ED. ld1 15:44 Luan Pizarro PA is PHCP. cp 15:44 Luis Fernando Jones MD is Attending Physician. cp 15:45 Arm band placed on. tw2 15:45 Call light in reach. Pulse ox on. NIBP on. tw2 15:51 Keyla Piedra, NOE is Primary Nurse. ld1 15:53 Triage completed. ld1 15:54 No provider procedures requiring assistance completed. ld1 16:00 Initial lab(s) drawn, by me, sent to lab. Inserted saline lock: 20 gauge in right aa5 antecubital area, using aseptic technique. Blood collected. 18:45 IV discontinued, intact, bleeding controlled, No redness/swelling at site. ld1 Administered Medications: 16:07 Drug: NS 0.9% 1000 ml Route: IV; Rate: 1 bolus; Site: right antecubital; aa5 18:21 Not Given (Patient Refused): NS 0.9% 1000 ml IV at 1 bolus Per protocol; 1000 mL bolus ld1 Outcome: 18:36 Discharge ordered by . corrine 18:45 Discharged to home ambulatory. ld1 18:45 Condition: stable 18:45 Discharge instructions given to patient, Instructed on discharge instructions, follow up and referral plans. medication usage, Demonstrated understanding of instructions, follow-up care, medications. 18:45 Patient left the ED. ld1 Signatures: Elba Asif RN RN aa5 Luan Pizarro PA PA Qian Stevenson RN RN tw2 Keyla Piedra RN RN ld1 Corrections: (The following items were deleted from the chart) 18:21 18:21 NS 0.9% 1000 ml IV at 1 bolus in right antecubital ld1 ld1
[2021-05-08 20:02] VITALS: TEMP 98.9; O2SAT 100
[2021-05-08 20:06] VITALS: BP 124/80
--- NOTE | 2021-05-09 07:41 | EKG ---
Test Date: 2021-05-08 Test Time: 16:05:46 Workforce Management Coordinator: RENE MEASUREMENT RESULTS: Intervals: Rate: 76 NM: 166 QRSD: 88 QT: 382 QTc: 429 Masterson: P: 32 NM: 166 QRS: 32 T: 35 INTERPRETIVE STATEMENTS: Sinus rhythm with sinus arrhythmia with occasional premature ventricular complexes Otherwise normal ECG Compared to ECG 03/07/2019 17:23:56 Sinus tachycardia no longer present Electronically Signed On 05-09-21 07:39:19 CDT by Jake Best
== END 2021-05-08 18:45 | disposition home or self-care (01) ==
LOC: ER 15:39
DX: T67.5XXA Heat exhaustion, unspecified, initial encounter (principal); I10 Essential (primary) hypertension
CPT/HCPCS: 36415; 80048; 80076; 82550; 83735; 84484; 85025; 85610; 93005; 99284; J7030

== ENCOUNTER → 2024-01-17 | Emergency (ER) | payer OTHER, BC ==
[~2024-01-17] MED LIST: CEFAZOLIN SODIUM 2 GM/VIAL ONE; MORPHINE 4 MG/ML SYR ONE; NA CHLORIDE 0.9% 100 ML ONE; ONDANSETRON 4 MG/2 ML VIAL ONE; TDAP (DIPHTH,PERTUSS(ACELL),TET VAC) 0.5 ML VIAL IMVAC ONE
--- NOTE | 2024-01-17 16:51 | EDPHYS ---
Physician Documentation [facility] Name: Frantz Martinez Jr Age: 48 yrs Sex: Male : 1975 Arrival Date: 01/17/2024 Time: 15:48 Bed 2 Private MD: ED Physician Miguel Day HPI: 01/17 17:13 This 48 yrs old Male presents to ER via Ambulatory with complaints of Hand Injury. rt 17:13 Patient presents to the ED with injury to the right hand. Patient states that he is rt right-handed. Patient was walking, changing apartments, slapped his hand. Reports amputation to the left little digit, reports moved to the other digits as well. Symptoms are severe in severity, no other aggravating or elevating factors.. Historical: - Allergies: 16:00 No Known Allergies; ap3 - PMHx: 16:00 Diverticulitis; Hypertension; ap3 - Immunization history: Last tetanus immunization: not up to date. - Family history:: not pertinent. ROS: 17:13 Constitutional: Negative for fever, chills, and weight loss, Cardiovascular: Negative rt for chest pain, palpitations, and edema, Respiratory: Negative for shortness of breath, cough, wheezing, and pleuritic chest pain, Abdomen/GI: Negative for abdominal pain, nausea, vomiting, diarrhea, and constipation, Neuro: Negative for headache, weakness, numbness, tingling, and seizure, Psych: Negative for depression, anxiety, suicide ideation, homicidal ideation, and hallucinations, 17:13 MS/extremity: Positive for injury or acute deformity, laceration, Exam: 17:13 Constitutional: This is a well developed, well nourished patient who is awake, alert, rt and in no acute distress. Head/Face: Normocephalic, atraumatic. Chest/axilla: Normal chest wall appearance and motion. Nontender with no deformity. No lesions are appreciated. Cardiovascular: Regular rate and rhythm with a normal S1 and S2. No gallops, murmurs, or rubs. Normal PMI, no JVD. No pulse deficits. Respiratory: Lungs have equal breath sounds bilaterally, clear to auscultation and percussion. No rales, rhonchi or wheezes noted. No increased work of breathing, no retractions or nasal flaring. Abdomen/GI: Soft, non-tender, with normal bowel sounds. No distension or tympany. No guarding or rebound. No evidence of tenderness throughout. Skin: Warm, dry with normal turgor. Normal color with no rashes, no lesions, and no evidence of cellulitis. Neuro: Awake and alert, GCS 15, oriented to person, place, time, and situation. Cranial nerves II-XII grossly intact. Motor strength 5/5 in all extremities. Sensory grossly intact. Cerebellar exam normal. Normal gait. Psych: Awake, alert, with orientation to person, place and time. Behavior, mood, and affect are within normal limits. 17:13 Musculoskeletal/extremity: Avulsion injury to the dorsum of the right first digit. Monitor exposed, patient is not able to extend anything. There is apparent tendon injury. There is a complete indication to the digit. There are small lacerations overlying the fingernails of patient's 233, no deformities noted there. Pulses, motor, sensation otherwise intact.. Vital Signs: 16:03 BP 140 / 88; Pulse 87; Resp 19; Temp 97.3(TE); Pulse Ox 99% on R/A; Weight 104.33 kg; aa5 Height 5 ft. 6 in. ; 17:21 BP 165 / 96; Pulse 84; Resp 16; Pulse Ox 97% on R/A; iw 16:03 Body Mass Index 37.12 (104.33 kg, 167.64 cm) aa5 MDM: 15:53 Patient medically screened. rt 17:16 Differential Diagnosis Amputation, laceration, fracture. Data reviewed: vital signs, rt nurses notes, radiologic studies. Consideration of Admission/Observation Escalation of care including admission/observation considered. Patient requires transfer for specialty care. Counseling: I had a detailed discussion with the patient and/or guardian regarding the historical points, exam findings, and any diagnostic results supporting the discharge/admit diagnosis, radiology results, the need to transfer to another facility, [facility] does not immediately have the required specialist. Response to treatment: There is no appreciated change of the patient's symptoms at this time. 01/17 16:00 Order name: Hand Right 3 View XRAY; Complete Time: 18:00 rt Administered Medications: 16:14 Drug: ceFAZolin IVPB 2 grams IVPB once over 30 mins; (mix in 100 mL NS) Route: IVPB; aa5 Infused Over: 30 mins; Site: left forearm; 16:44 Follow up: Response: No adverse reaction; IV Status: Completed infusion aa5 16:14 CANCELLED (Physician Discretion): tetanus-diphtheria toxoidadult 0.5 ml IM once; aa5 Provide Vaccine Information Statement (VIS). 16:14 Drug: morphine IVP or IV 4 mg IVP once over 4 mins Route: IVP; Infused Over: 4 mins; aa5 Site: left forearm; 16:30 Follow up: Response: No adverse reaction aa5 16:14 Drug: Ondansetron IVP 4 mg IVP once; over 2 minutes Route: IVP; Site: left forearm; aa5 16:30 Follow up: Response: No adverse reaction aa5 16:14 Drug: Boostrix Tdap IM 0.5 ml IM once; as a single dose Route: IM; Site: left deltoid; aa5 16:30 Follow up: Response: No adverse reaction aa5 18:05 Drug: morphine IVP or IV 4 mg IVP once over 4 mins Route: IVP; Infused Over: 4 mins; aa5 Site: left forearm; 18:10 Follow up: Response: No adverse reaction aa5 Disposition Summary: 01/17/24 16:50 Transfer Ordered Notes: Transfer Location: [facility] rt Reason: Higher level of care rt Condition: Fair rt Problem: new rt Symptoms: are unchanged rt Accepting Physician: (01/17/24 18:14) aa5 Diagnosis - 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 Total time: 35 rt minutes Signatures: Dispatcher [employer] Elba Landry RN RN aa5 Sveta Kc RN RN ap3 Miguel Day MD MD rt Corrections: (The following items were deleted from the chart) 16:14 16:00 Tetanus-Diphtheria Toxoid IM Adult 0.5 ml IM once; Provide Vaccine Information aa5 Statement (VIS). ordered. rt 18:14 16:50 rt aa5
--- NOTE | 2024-01-17 16:51 | ER ---
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 patient presents to the ED with right pinky traumatically removed, and injuries to the remaining fingers on his right hand. Coronavirus screen: At this time, the client does not indicate any symptoms associated with coronavirus-19. Ebola Screen: No symptoms or risks identified at this time. Initial Sepsis Screen: Does the patient meet any 2 criteria? No. Patient's initial sepsis screen is negative. Risk Assessment: Do you want to hurt yourself or someone else? Patient reports no desire to harm self or others. Onset of symptoms was January 17, 2024. 15:59 Method Of Arrival: Ambulatory ap3 15:59 Acuity: CONNIE 2 ap3 Triage Assessment: 16:00 General: Appears uncomfortable, Behavior is calm, cooperative, appropriate for age. ap3 Pain: Complains of pain in right hand Pain began suddenly. Neuro: Level of Consciousness is awake, alert, obeys commands, Oriented to person, place, time, situation. Cardiovascular: Patient's skin is warm and dry. Respiratory: Airway is patent Respiratory effort is even, unlabored, Respiratory pattern is regular, symmetrical. Musculoskeletal: Amputation of right little finger and palmar aspect of distal phalanx of right thumb. Historical: - Allergies: 16:00 No Known Allergies; ap3 - PMHx: 16:00 Diverticulitis; Hypertension; ap3 - Immunization history: Last tetanus immunization: not up to date. - Family history:: not pertinent. Screenin:02 Abuse screen: Denies threats or abuse. Nutritional screening: No deficits noted. ap3 Tuberculosis screening: No symptoms or risk factors identified. Assessment: 16:30 General: Appears in no apparent distress. Behavior is calm, cooperative. Pain: iw Complains of pain in right hand. Neuro: Level of Consciousness is awake, alert, obeys commands. Derm: Skin is healthy with good turgor. Derm:. Musculoskeletal: Amputation of dorsal aspect of proximal phalanx of right little finger and palmar aspect of proximal phalanx of right little finger. Musculoskeletal: Amputation of partial amputation of dorsal aspect of 1st 2nd 3rd digit, complete amputation of 5th digit , bleeding controlled. 16:58 Reassessment: Patient appears in no apparent distress at this time. Patient and/or iw family updated on plan of care and expected duration. Pain level reassessed. report called to [facility]. 18:05 Reassessment: Patient is alert, oriented x 3, equal unlabored respirations, skin aa5 warm/dry/pink. Vital Signs: 16:03 BP 140 / 88; Pulse 87; Resp 19; Temp 97.3(TE); Pulse Ox 99% on R/A; Weight 104.33 kg; aa5 Height 5 ft. 6 in. ; 17:21 BP 165 / 96; Pulse 84; Resp 16; Pulse Ox 97% on R/A; iw 16:03 Body Mass Index 37.12 (104.33 kg, 167.64 cm) aa5 ED Course: 15:50 Patient arrived in ED. sb4 15:53 Miguel Day MD is Attending Physician. rt 16:00 Triage completed. ap3 16:02 Arm band placed on left wrist. ap3 16:04 Patient maintains SpO2 saturation greater than 95% on room air. ap3 16:06 Hand Right 3 View XRAY In Process Unspecified. EDMS 16:44 Sherice Henriquez, RN is Primary Nurse. iw 18:10 Patient transferred, IV remains in place. aa5 Administered Medications: 16:14 Drug: ceFAZolin IVPB 2 grams IVPB once over 30 mins; (mix in 100 mL NS) Route: IVPB; aa5 Infused Over: 30 mins; Site: left forearm; 16:44 Follow up: Response: No adverse reaction; IV Status: Completed infusion aa5 16:14 CANCELLED (Physician Discretion): tetanus-diphtheria toxoidadult 0.5 ml IM once; aa5 Provide Vaccine Information Statement (VIS). 16:14 Drug: morphine IVP or IV 4 mg IVP once over 4 mins Route: IVP; Infused Over: 4 mins; aa5 Site: left forearm; 16:30 Follow up: Response: No adverse reaction aa5 16:14 Drug: Ondansetron IVP 4 mg IVP once; over 2 minutes Route: IVP; Site: left forearm; aa5 16:30 Follow up: Response: No adverse reaction aa5 16:14 Drug: Boostrix Tdap IM 0.5 ml IM once; as a single dose Route: IM; Site: left deltoid; aa5 16:30 Follow up: Response: No adverse reaction aa5 18:05 Drug: morphine IVP or IV 4 mg IVP once over 4 mins Route: IVP; Infused Over: 4 mins; aa5 Site: left forearm; 18:10 Follow up: Response: No adverse reaction aa5 Outcome: 16:50 ER care complete, transfer ordered by . rt 18:10 Patient left the ED. aa5 18:10 Transferred by ground EMS to [facility], Transfer form completed. X-rays sent aa5 w/ patient. 18:10 Condition: stable 18:10 Instructed on the need for transfer, Demonstrated understanding of instructions, Signatures: Dispatcher [employer] EDMS Sherice Henriquez RN RN iw Calderon, Audri RN RN aa5 Sveta Kc RN RN ap3 Amee Diamond RN RN kb3 Lesli Kraus PA-C PAJames sb4 Miguel Day MD MD rt Corrections: (The following items were deleted from the chart) 16:15 16:03 Pulse 87bpm; Resp 19bpm; 104.33 kg; Height 5 ft. 6 in.; BMI: 37.1; ap3 aa5 18:17 16:44 IV Status: Completed infusion aa5 aa5 18:17 16:32 Eloped 3 aa5 18:18 18:14 Patient left the ED. aa5 aa5
--- NOTE | 2024-01-17 17:58 | RAD REPORT ---
EXAM DESCRIPTION: RAD - Hand Right 3 View - 01/17/2024 4:04 pm CLINICAL HISTORY: Right hand pain status post injury FINDINGS: Partial amputation second distal phalanx. Most of the fifth phalanx has been resected Comminuted mildly displaced fracture third terminal tuft Small bony density adjacent to the proximal aspect of the second middle phalanx could be acute or chr onic. No dislocation seen
[2024-01-17 18:37] VITALS: BP 165/96; TEMP 97.3; O2SAT 97
== END ==
LOC: ER 15:48
DX: S68.616A Complete traumatic transphalangeal amputation of right little finger, initial encounter (principal); S62.632B Displaced fracture of distal phalanx of right middle finger, initial encounter for open fracture; S62.634B Displaced fracture of distal phalanx of right ring finger, initial encounter for open fracture; S61.200A Unspecified open wound of right index finger without damage to nail, initial encounter
CPT/HCPCS: 96365; 73130; 96375; 96372; 99285; J2405